=== PATIENT | male | born 1935 | race Caucasian/White ===

== ENCOUNTER 2018-09-19 10:25 | Inpatient (IN) ==
--- OUTSIDE RECORDS SUMMARY | 2018-09-19 10:27 | External Medical Summary | Continuity of Care Document ---
:1935 Author Name Holly Chavarria Address Unavailable Unavailable , Care Team Providers Name Role Phone Unavailable Unavailable Unavailable Ag MAR Unavailable Unavailable Problems Active medical history not documented Allergies and Adverse Reactions Allergy history not documented Medications Medications not documented Procedures Procedures not documented Immunizations Immunizations not documented Plan of Treatment Planned Observations Planned Goals not documented Results No Known Results Results not documented
[2018-09-19] MEDS ORDERED: SODIUM CHLORIDE 0.9% 500 ML IV ONE (10:59)
[2018-09-19] MEDS ORDERED: ACETAMINOPHEN 1,000 MG/100 ML VIAL IV STA (10:59)
[2018-09-19] MEDS ORDERED: DEXAMETHASONE SOD PHOSPHATE 10 MG in SYRINGE 0 ML IV STA (10:59)
[2018-09-19] MEDS ORDERED: TRAMADOL HCL 50 MG TABLET PO STA (11:01)
[2018-09-19] MEDS ORDERED: DEXAMETHASONE **PF** INJ 10 MG/ML VIAL ONE (11:29)
[2018-09-19 11:30] LABS: Basophils # (auto) 0.02 K/uL (0-0.2); Basophils % (auto) 0.3 %; Eosinophils # (auto) 0.06 K/uL (0-0.5); Eosinophils % (auto) 0.8 %; Hematocrit (blood only) 36.1 % (42-52); Hemoglobin 12.2 g/dL (14.0-18.0); Immature Granulocytes # (auto) 0.14 K/uL (0.00-0.02); Immature Granulocytes % (auto) 1.8 %; Lymphocytes # (auto) 0.99 K/uL (1.2-3.4); Mean Corpuscular Hgb Conc 33.8 g/dL (32-36); Mean Corpuscular Volume 87.6 fL (80-100); Mean Platelet Volume 9.5 fL (7.4-10.4); Monocytes # (auto) 0.64 K/uL (0.11-0.59); Monocytes % (auto) 8.4 %; Neutrophils # (auto) 5.76 K/uL (1.4-6.5); Neutrophils % (auto) 75.7 %; Platelet Count 145 K/uL (130-400); RDW Coefficient of Variation 13.9 % (11.5-14.5); RDW Standard Deviation 44.5 fL (36.4-46.3); Red Blood Count 4.12 M/uL (4.7-6.1); White Blood Count 7.61 K/uL (4.8-10.8)
[2018-09-19 11:41] LABS: Albumin Level 3.3 gm/dl (3.4-5.0); BUN Creatinine Ratio 19.8 (10-20); Calcium 10.5 mg/dl (8.5-10.1); Creatinine Clr Calc Pharmacy 51.9 ml/min; Est GFR (Non-African American) 56.9; Potassium 3.5 mmol/L (3.5-5.1)
[2018-09-19 11:46] LABS: Albumin Globulin Ratio 0.8 (0.9-2); Bilirubin Direct 0.2 mg/dl (0-0.2); Bilirubin,Total 0.6 mg/dl (0.2-1); Globulin 4.1 gm/dl (2.5-4.0); Phosphorus 3.2 mg/dl (2.5-4.9); Total Protein 7.4 gm/dl (6.4-8.2)
[2018-09-19] MEDS ORDERED: IOVERSOL 100ml IV PRN (12:05)
[2018-09-19 12:06] LABS: Lyme Ab IgM w/WB Rflx Negative (Negative)
[2018-09-19 12:07] LABS: Lyme Ab IgG w/WB Rflx Negative (Negative)
--- NOTE | 2018-09-19 12:21 | CT Scan Report ---
CT abd pelvis IV con only CLINICAL HISTORY: lower back pain, ostomy COMPARISON STUDY: June 25, 2015 TECHNIQUE: Patient was scanned in a dynamic helical fashion during intravenous administration of 94 c c Optiray 320. A dose lowering technique was utilized adhering to the principles of ALARA. CT DOSE: 1284.47 mGy.cm FINDINGS: Lower chest: There are dependent atelectatic changes. There is aneurysmal dilatation of the descendin g thoracic aorta which measures 39 mm. There is mural thrombus present. Liver: The contrast-enhanced liver is normal in size, contour, and attenuation. There is no intrahepa tic biliary ductal dilatation. The hepatic veins and portal veins are patent. Gallbladder: Cholelithiasis Spleen: Normal in size and attenuation. Pancreas: Unremarkable. Adrenal glands: Unremarkable. Kidneys: There is a 3 mm nonobstructing right renal calculus. There is no hydronephrosis. There are m ultiple bilateral renal cysts measuring up to 4.8 cm in diameter. Bowel: There are no transition zones to indicate bowel obstruction. There is a right lower quadrant i leostomy. The patient appears be status post a prior colectomy. Peritoneum: There is no intraperitoneal free air or abdominal ascites. Vasculature: There is a 4.8 cm infrarenal abdominal aortic aneurysm status post aortoiliac stent debbie ting. Adenopathy: There are enlarged bilateral low pelvic lymph nodes. Pelvic viscera: There is a 10 cm lobulated pelvic mass contiguous with the prostate and bladder base. There are adjacent pathologically enlarged pelvic lymph nodes. The findings are consistent with a ne oplasm. Skeletal structures: There are lytic bone lesions involving the ischial bilaterally and left symphysi s. There are lytic lesions within the sacrum, including a 5 cm left-sided lesion with epidural extens ion. There are lytic lesions present within the lumbar and lower thoracic spine. A 14 mm T10 lesion d emonstrates epidural extension on the left. A T11 lesion also demonstrates suspected epidural extensi on IMPRESSION: 1. 10 cm lobulated pelvic mass contiguous with the prostate and bladder base. There are adjacent path ologically enlarged pelvic lymph nodes. 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 Spinal MRI might be considered in follow-up to further evaluate the exte nt of epidural disease and canal compromise 3. Postsurgical changes are prior colectomy. No evidence of bowel obstruction. No evidence of free ai r 4. Abdominal aortic aneurysm status post aortoiliac stent grafting. 5. Nonobstructing 3 mm right renal calculus 6. Cholelithiasis Electronically signed by: Hiue Mims M.D. 09/19/2018 12:20 PM
[2018-09-19 13:12] LABS: Appearance Urine Clear (Clear); Bilirubin Urine Negative (Negative); Blood Urine Negative (Negative); Color Urine Yellow; Glucose Urine UA Negative (Negative); Ketones Urine Negative (Negative); Leukocyte Esterase Urine Negative (Negative); Nitrite Urine Negative (Negative); Protein Urine Negative (Negative); Specific Gravity Urine 1.035 (1.000-1.030); Urobilinogen Urine Negative (Negative); pH Urine 5.5 (4.5-7.5)
[2018-09-19] MEDS ORDERED: MoRPHine SULFATE 2 MG/ML CARP IV STA (13:12)
--- NOTE | 2018-09-19 14:32 | History & Physical Report ---
Date of Service September 19, 2018 Assessment & Plan (1) Pelvic mass: Pt presented to ER with c/o thoracic and low back pain with radiation to bilateral buttocks that has increased over past several months. Reports decreased urinary stream and incomplete bladder emptying. CT ABD/PELVIS WITH CONTRAST: 1. 10 cm lobulated pelvic mass contiguous with the prostate and bladder base. There are adjacent pathologically enlarged pelvic lymph nodes. 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 Spinal MRI might be considered in follow-up to further evaluate the extent of epidural disease and canal compromise 3. Postsurgical changes are prior colectomy. No evidence of bowel obstruction. No evidence of free air 4. Abdominal aortic aneurysm status post aortoiliac stent grafting. 5. Nonobstructing 3 mm right renal calculus 6. Cholelithiasis -In ER given Tylenol IV, Tramdol with reported minimal relief. Received Morphine 2mg IV with moderate back pain relief. Also given dexamethasone 10mg IV, 500ml NSS -Pain control with oxycodone, morphine prn -Bladder scan -Continue gabapentin -Urology consult -Consider further imaging (pt received IV contrast today) -Monitor CBC, BMP (2) HTN (hypertension): Stable -Continue atenolol (3) CAD (coronary artery disease): S/P stent RCA in 1999 -Continue atenolol, simvastatin (4) AAA (abdominal aortic aneurysm): S/P repair in 2008 (5) BPH (benign prostatic hyperplasia): -Continue finasteride History of Present Illness Chief Complaint: Back pain Primary Care Provider: Patrick Calero DO Pt is 83 y/o M with PMH HTN, dyslipidemia, CAD s/p stent RCA, AAA s/p repair, ulcerative colitis s/p colectomy, BPH presented to ER with c/o increased back pain. Patient reports history of lower back pain for several years. Reports increased back pain for the past 8 months with pain to lower back with radiation to buttocks in past 3 months is also been having mid back pain. Patient states the past several months pain is increased and he is having difficulty lying supine in finding position of comfort. Has followed up with pain management at [facility] and injections were tried without relief. Pt followed with neurosurgery at [facility] on 09/17/18 and conservative treatment recommended. Pt reports tried hydrocodone which he reserved for severe pain and used with limited relief of pain, states has one dose remaining. On Gabapentin, states some relief, however pt reports drowsiness and states ran out yesterday. Patient denies any lower extremity weakness. Denies any falls. Patient reports is been using a walker. Patient reports noticed weight loss over the past couple months however is unsure the amount. Reports decreased appetite the past month. Denies night sweats. Pt reports progressive decreased urine stream and sensation of incomplete bladder emptying over past couple of months. Denies any increased stool out put in colostomy bag. Denies fever/chills, N/V, [place], dizziness, syncope, vision changes, neck pain, CP, SOB, orthopnea, palpitations, cough, sore throat, choking, otalgia, rhinorrhea, abdominal pain, extremity paresthesias, saddle paresthesias, extremity edema, rashes, urinary incontinence, hematuria. History MRI lumbar spine without contrast 04/01/2018: 1. Mild to moderate multilevel degenerative disc disease. 2. No definite limiting canal stenosis. 3. Varying degrees of foraminal narrowing as described not definitively limiting. 4. On the STIR images, there is a STIR hyperintensity appears to be associated with the right ilium. This is not well demonstrated on their series, appears T1 hypointense and is nonspecific, may be posttraumatic. Metastatic lesion not excluded. Follow-up with CT scan or MRI with contrast recommended. Hx CT ABD/PELVIS W/O CONTRAST on 05/01/18: Bones: No focal skeletal lesion identified. Bladder: unremarkable, Lymph nodes: unremarkable. Enlarged prostate gland. Vessels: Aorto bi-iliac graft stent noted, the stent bypasses a fusiform abdominal aneurysm near the bifurcation that measures up to approx 4.9cm in diameter. this is unchanged in size compared to aortic ultrasound 09/18/2017. Allergies Allergy/AdvReac Type Severity Reaction Status Date / Time No Known Allergies Allergy Unverified 09/19/18 10:47 Home Medications Home Medications Medication Instructions Recorded Confirmed Type atenolol 25 mg PO HS 09/19/18 09/19/18 History bimatoprost [Lumigan] 1 drp OPB PM 09/19/18 09/19/18 History brimonidine-timolol [Combigan] 1 drp OPB BID 09/19/18 09/19/18 History fexofenadine [Silvia Allergy] 180 mg PO DAILY PRN 09/19/18 09/19/18 History finasteride 5 mg PO DAILY 09/19/18 09/19/18 History gabapentin 600 mg PO TID 09/19/18 09/19/18 History hydrocodone-acetaminophen 1 tab PO Q6H PRN 09/19/18 09/19/18 History ibuprofen 400 mg PO QID PRN 09/19/18 09/19/18 History netarsudil [Rhopressa] 1 drp OPB QAM 09/19/18 09/19/18 History simvastatin 80 mg PO HS 09/19/18 09/19/18 History tamsulosin 0.4 mg PO DAILY 09/19/18 09/19/18 History Past Med/Surg History Medical History Ulcerative colitis (Chronic) AAA (abdominal aortic aneurysm) (Chronic) S/P [place]13/[place] [facility] BPH (benign prostatic hyperplasia) (Chronic) CAD (coronary artery disease) (Chronic) Dyslipidemia (Chronic) HTN (hypertension) (Chronic) Surgical History Hx of cataract surgery (Chronic) Hx of tonsillectomy (Chronic) History of colostomy (Chronic) History of cardiac catheterization (Chronic) S/P stent RCA in 1999 Family History Other Diabetes Hypertension Social History Communication Ability: Effective Beliefs That Will Affect Care: None Current Living Situation: Family Feels Safe at Home: Yes Safety Concerns: Feels Safe At This Time Smoking Status: Former smoker Smoking End Date: Quit 1989, smoked 1.5ppd x 30 years Hx Alcohol Use: No Hx Substance Use: No Review of Systems Review of Systems: All systems reviewed & are unremarkable except as noted in HPI & below Physical Exam Physical Exam: General: no acute distress after receiving pain meds in ER, WDWN Head: normocephalic, atraumatic Eyes: PERRL, EOM's intact, conjunctiva non-injected, anicteric ENT: Hard of hearing, normal inspection external ears, nose, mucous membranes moist Neck: supple, trachea midline, non-tender Lungs: clear, no respiratory distress, no wheezing/rhonchi/rales CV: RRR, systolic murmur, no pretibial edema Chest: no rashes, +palpable firm mass right and left lateral sternum rib at approx nipple line that is tender to palpation Abd: normal BS, soft, non-tender Back: +mild tenderness to palpation mid and lower thoracic and lower lumbar spinous processes, able to straight leg raise to approx 30 degrees bilaterally, patellar reflexes intact, sensation to light touch BLE intact, distal pulses palpable Ext: no cyanosis, no calf tenderness Neuro: A&O x 3, no focal deficits noted, normal affect Skin: warm, dry Results & Data Vital Signs (Past 12 Hours) Vital Signs Temp Pulse Pulse Resp BP BP Pulse Ox 09/19/18 13:10 87 20 140/87 94 09/19/18 11:37 87 20 159/79 H 92 09/19/18 11:22 92 09/19/18 10:31 37 C 77 20 141/76 H 95 Laboratory Results Short CBC 09/19/18 Range/Units 11:17 WBC 7.61 (4.8-10.8) K/uL Hgb 12.2 L (14.0-18.0) g/dL Hct 36.1 L (42-52) % Plt Count 145 (130-400) K/uL BMP 09/19/18 11:17 Sodium 138 Potassium 3.5 Chloride 101 Carbon Dioxide 30 BUN 24 H Creatinine 1.19 Glucose 106 H Calcium 10.5 H Cardiac Enzymes 09/19/18 Range/Units 11:17 Total Creatine Kinase 81 (39-308) U/L Liver Function 09/19/18 Range/Units 11:17 Total Bilirubin 0.6 (0.2-1) mg/dl Direct Bilirubin 0.2 (0-0.2) mg/dl AST 33 (15-37) U/L ALT 17 (12-78) U/L Alkaline Phosphatase 85 (45-117) U/L Albumin 3.3 L (3.4-5.0) gm/dl Urine 09/19/18 Range/Units 13:05 Urine Color Yellow Urine Appearance Clear (Clear) Urine pH 5.5 (4.5-7.5) Ur Specific [place] 1.035 H (1.000-1.030) Urine Protein Negative (Negative) Urine Glucose (UA) Negative (Negative) Diagnostic Findings CT ABD/PELVIS WITH CONTRAST: IMPRESSION: 1. 10 cm lobulated pelvic mass contiguous with the prostate and bladder base. There are adjacent pathologically enlarged pelvic lymph nodes. 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 Spinal MRI might be considered in follow-up to further evaluate the extent of epidural disease and canal compromise 3. Postsurgical changes are prior colectomy. No evidence of bowel obstruction. No evidence of free air 4. Abdominal aortic aneurysm status post aortoiliac stent grafting. 5. Nonobstructing 3 mm right renal calculus 6. Cholelithiasis Supervising Physician Co-Signing Physician Notes Attending Addendum: care coordinated with ARMANDO Cottrell please refer to her notes for full details, I agree with her notes patient seen and examined, records reviewed by myself as well on exam, patient seen resting in bed, comfortable, not in distress Back pain fully relieved by PRN morphine Denies problems with urination no other symptoms VS noted and reviewed oriented x3, not in distress, speaks in sentences with no effort nor accessory muscle use normal rate, regular rhythm, no murmurs clear breath sounds bilaterally non distended, soft, nontender no bipedal edema, erythema, warmth no neuro deficits WBC 7.6 Hg 12[address] abdomen pelvis: Noted ASSESSMENT AND PLAN Back pain, 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
[2018-09-19] MEDS ORDERED: SODIUM CHLORIDE 0.9% 1000ML 1,000 ML IV SCH (15:36)
[2018-09-19] MEDS ORDERED: ACETAMINOPHEN 325 MG TAB PO PRN (15:36)
[2018-09-19] MEDS ORDERED: MoRPHine SULFATE 2 MG/ML CARP IV PRN (15:36)
--- NOTE | 2018-09-19 15:51 | Emergency Department Note ---
Entered by Emi Day acting as a scribe for Kvng Arango MD History of Present Illness General Chief complaint: Back Injury/Pain Time Seen by Provider: 09/19/18 10:31 Source: patient History of Present Illness Provider complaint: back pain Onset (ago): week(s) (Couple of weeks) Location: back Radiation: back (From center to lower back) Maximum Pain Intensity: 7 Quality: + other (back pain) Relieved By: not by medication Associated symptoms: + other (Positive diffulty urinarting) The patient is a 83 year old male who presents to the Emergency Room with complaints of constant back pain that started a couple of weeks ago. The patient states that he recently had an MRI of his back but pain is getting worse. The patient expresses that he can not lay down, sit or stand without discomfort. The patient states that he has been prescribed medication but it has not given him pain relief. The patient expresses that the pain is unbearable. The patient reports that the pain is in the center of his spine and radiates down to his lower back. The patient expresses that it feels like his coccyx is pressing on something and giving him pain. The patient reports that 25 years ago he had a pilonidol cyst. The patient denies any recent falls and can only walk with a walker. The patient states that he has an enlarged prostate and expresses increasing trouble to urinate. The patient expresses that he had suicidal ideation with no intention to act on it. The patient reports that he lives with is son. The patient had an MRI from [facility] 04/01/2018 that showed mild to moderate multilevel degenerative disk disease with no canal stenosis. The patient had a CT of his pelvis on 05/01/18 no focal skeletal lesion. The patient saw pain management on 09/11/18 and had recent inter-articular facet injection but pain was not improved. Home Medications Home Medications Medication Instructions Recorded Confirmed Type atenolol 25 mg PO HS 09/19/18 09/19/18 History bimatoprost [Lumigan] 1 drp OPB PM 09/19/18 09/19/18 History brimonidine-timolol [Combigan] 1 drp OPB BID 09/19/18 09/19/18 History fexofenadine [Silvia Allergy] 180 mg PO DAILY PRN 09/19/18 09/19/18 History finasteride 5 mg PO DAILY 09/19/18 09/19/18 History gabapentin 600 mg PO TID 09/19/18 09/19/18 History hydrocodone-acetaminophen 1 tab PO Q6H PRN 09/19/18 09/19/18 History ibuprofen 400 mg PO QID PRN 09/19/18 09/19/18 History netarsudil [Rhopressa] 1 drp OPB QAM 09/19/18 09/19/18 History simvastatin 80 mg PO HS 09/19/18 09/19/18 History tamsulosin 0.4 mg PO DAILY 09/19/18 09/19/18 History Allergies Allergy/AdvReac Type Severity Reaction Status Date / Time No Known Allergies Allergy Unverified 09/19/18 10:47 Past Med/Surg History Medical History Ulcerative colitis (Chronic) AAA (abdominal aortic aneurysm) (Chronic) [place] [facility] [place] [place]PH (benign prostatic hyperplasia) (Chronic) CAD (coronary artery disease) (Chronic) Dyslipidemia (Chronic) HTN (hypertension) (Chronic) Surgical History Hx of cataract surgery (Chronic) Hx of tonsillectomy (Chronic) History of colostomy (Chronic) History of cardiac catheterization (Chronic) S/P stent RCA in 1999 Family History Other Diabetes Hypertension Social History Communication Ability: Effective Beliefs That Will Affect Care: None Current Living Situation: Family Feels Safe at Home: Yes Safety Concerns: Feels Safe At This Time Smoking Status: Former smoker Smoking End Date: Quit 1989, smoked 1.5ppd x 30 years Hx Alcohol Use: No Hx Substance Use: No Review of Systems See HPI for pertinent positives & negatives. and A total of 10 systems reviewed and were otherwise negative Physical Exam Vital Signs Vital Signs - 24 hr 09/19/18 10:31 09/19/18 11:22 09/19/18 11:37 Temperature 37 C Temperature Source Oral Sepsis Recent Fever Within 48 Hours No Sepsis New/Unexplained Change in Mental Status No Sepsis Action Taken by Nursing No Action Required Pulse Rate 77 Pulse Rate [Apical] 87 Respiratory Rate 20 20 Blood Pressure 141/76 H Blood Pressure [Right Arm] 159/79 H Blood Pressure Mean 97 Blood Pressure Mean [Right Arm] 105 Pulse Oximetry 95 92 92 Oxygen Delivery Method Room Air Room Air Room Air 09/19/18 13:10 Temperature Temperature Source Sepsis Recent Fever Within 48 Hours Sepsis New/Unexplained Change in Mental Status Sepsis Action Taken by Nursing Pulse Rate Pulse Rate [Apical] 87 Respiratory Rate 20 Blood Pressure Blood Pressure [Right Arm] 140/87 Blood Pressure Mean Blood Pressure Mean [Right Arm] 104 Pulse Oximetry 94 Oxygen Delivery Method Room Air GENERAL: Awake, alert, melancholy-appearing, and uncomfortable HENT: Normocephalic, atraumatic. Oropharynx with dry mucous membranes and otherw ise unremarkable. EYES: Normal conjunctiva. Sclera non-icteric. NECK: Supple. No nuchal rigidity. FROM. No JVD. RESPIRATORY: CTAB. CARDIAC: Regular rate, normal rhythm. Extremities warm and well perfused. Pulses equal. ABDOMEN: Soft, non-distended. No tenderness to palpation. No rebound or guarding. No masses. Ostomy clean and dry. RECTAL: Deferred. MUSCULOSKELETAL: Chest examination 2cm protuberance left of sternum with mild ttp. The back is symmetrical on inspection without obvious abnormality. No discrete ttp of CTL spine. There is no CVA tenderness to palpation. No joint edema. LOWER EXTREMITIES: Calves are equal size bilaterally and non-tender. No edema. No discoloration. NEURO: Normal sensorium. No sensory or motor deficits noted. 5/5 strength and SILT x 4 extremities. DTRs wnl.. No clonus. L5 intact bilaterally. SKIN: No rash or jaundice noted. Course 1049: Past medical records reviewed. The patient was evaluated in room B10. A complete history and physical exam was performed. 1230: I reviewed the patient's case with Dr. Paige Martin. She will evaluate the patient for further management. Consultations Consultation #1: I reviewed the patient's case with Dr. Paige Martin. She will evaluate the patient for further management. Time: 12:30 Administered Medications Sodium Chloride (Nss 1000ml) 1,000 mls @ 80 mls/hr IV .[id number] REGAN Stop: 09/20/18 04:05 Last Admin: 09/19/18 15:51 Dose: 80 mls/hr Documented by: [id number] Miscellaneous (Order Awaiting Action) 1 ea N/A QS REGAN Stop: 10/19/18 16:29 Last Admin: 09/19/18 17:15 Dose: Not Given Documented by: [id number] Miscellaneous (Order Awaiting Action) 1 ea N/A QS REGAN Stop: 10/19/18 15:59 Last Admin: 09/19/18 17:15 Dose: Not Given Documented by: [id number] Oxycodone HCl (Roxicodone Immediate Rel) 5 mg PO Q6H PRN PRN Reason: Pain Stop: 10/03/18 15:35 Last Admin: 09/19/18 17:09 Dose: 5 mg Documented by: [id number] Discontinued Medications Dexamethasone Sodium Phosphate (Decadron Pf) Confirm Administered Dose 10 mg .ROUTE .STK-MED ONE Stop: 09/19/18 11:30 Last Admin: 09/19/18 11:31 Dose: 10 mg Documented by: [id number] Acetaminophen (Ofirmev) 1,000 mg in 100 mls @ 400 mls/hr IV NOW STA Stop: 09/19/18 11:13 Last Infusion: 09/19/18 11:46 Dose: 0 mls/hr Documented by: [id number] Admin: 09/19/18 11:31 Dose: 400 mls/hr Documented by: [id number] Dexamethasone Sodium Phosphate (10 mg/ Syringe) 2.5 mls @ 1 mls/min IV NOW STA Stop: 09/19/18 11:01 Last Admin: 09/19/18 11:31 Dose: Not Given Documented by: [id number] Sodium Chloride (Nss) 500 mls @ 999 mls/hr IV .Q31M ONE Stop: 09/19/18 11:29 Last Infusion: 09/19/18 12:02 Dose: 0 mls/hr Documented by: [id number] Admin: 09/19/18 11:31 Dose: 999 mls/hr Documented by: [id number] Ioversol (Optiray 320 100ml) 94 ml IV ONCE PRN PRN Reason: Interaction Checking Stop: 09/23/18 12:04 Last Admin: 09/19/18 12:05 Dose: 94 ml Documented by: [id number] Morphine Sulfate (Morphine Sulfate) 2 mg IV NOW STA Stop: 09/19/18 13:13 Last Admin: 09/19/18 13:20 Dose: 2 mg Documented by: [id number] Tramadol HCl (Ultram) 50 mg PO NOW STA Stop: 09/19/18 11:02 Last Admin: 09/19/18 11:30 Dose: 50 mg Documented by: [id number] Medical Decision Making Differential Diagnosis Differential diagnosis includes: musculoskeletal, disc herniation, fracture, aortic disease, metastatic disease, cord compression, discitis, infection, renal colic, gastrointestinal, acute exacerbation of chronic back pain, sciatica, cauda equina, as well as others were entertained. Medical Records Attestation: I reviewed the patient's medical records. Home Medications Current Medication List: was personally reviewed by me Laboratory Data Attestation: I reviewed the patient's lab results. Result diagrams: 09/19/18 11:17 09/19/18 11:17 Lab Results 09/19/18 09/19/18 09/19/18 Range/Units 11:17 11:17 11:17 WBC 7.61 (4.8-10.8) K/uL RBC 4.12 L (4.7-6.1) M/uL Hgb 12.2 L (14.0-18.0) g/dL Hct 36.1 L (42-52) % MCV 87.6 (80-100) fL MCH 29.6 (25-34) pg MCHC 33.8 (32-36) g/dL RDW Std Deviation 44.5 (36.4-46.3) fL RDW Coeff of Deven 13.9 (11.5-14.5) % Plt Count 145 (130-400) K/uL MPV 9.5 (7.4-10.4) fL Immature Gran % (Auto) 1.8 % Neut % (Auto) 75.7 % Lymph % (Auto) 13.0 % [place] % (Auto) 8.4 % Eos % (Auto) 0.8 % Baso % (Auto) 0.3 % Immature Gran # (Auto) 0.14 H (0.00-0.02) K/uL Neut # (Auto) 5.76 (1.4-6.5) K/uL Lymph # (Auto) 0.99 L (1.2-3.4) K/uL [place] # (Auto) 0.64 H (0.11-0.59) K/uL Eos # (Auto) 0.06 (0-0.5) K/uL Baso # (Auto) 0.02 (0-0.2) K/uL Sodium 138 (136-145) mmol/L Potassium 3.5 (3.5-5.1) mmol/L Chloride 101 (98-107) mmol/L Carbon Dioxide 30 (21-32) mmol/L Anion Gap 7.0 (3-11) BUN 24 H (7-18) mg/dl Creatinine 1.19 (0.6-1.4) mg/dl Est Cr Clr Drug Dosing 51.9 ml/min Est GFR ( Amer) 66.0 Est GFR (Non-Af Amer) 56.9 BUN/Creatinine Ratio 19.8 (10-20) Glucose 106 H (70-99) mg/dl Calcium 10.5 H (8.5-10.1) mg/dl Phosphorus 3.2 (2.5-4.9) mg/dl Magnesium 2.0 (1.8-2.4) mg/dl Total Bilirubin 0.6 (0.2-1) mg/dl Direct Bilirubin 0.2 (0-0.2) mg/dl AST 33 (15-37) U/L ALT 17 (12-78) U/L Alkaline Phosphatase 85 (45-117) U/L Total Creatine Kinase 81 (39-308) U/L Total Protein 7.4 (6.4-8.2) gm/dl Albumin 3.3 L (3.4-5.0) gm/dl Globulin 4.1 H (2.5-4.0) gm/dl Albumin/Globulin Ratio 0.8 L (0.9-2) Lipase 113 (73-393) U/L Urine Color Urine Appearance (Clear) Urine pH (4.5-7.5) Ur Specific [place] (1.000-1.030) Urine Protein (Negative) Urine Glucose (UA) (Negative) Urine Ketones (Negative) Urine Blood (Negative) Urine Nitrite (Negative) Urine Bilirubin (Negative) Urine Urobilinogen (Negative) Ur Leukocyte Esterase (Negative) Lyme Disease IgG Ab Negative (Negative) Lyme Disease IgM Ab Negative (Negative) 09/19/18 Range/Units 13:05 WBC (4.8-10.8) K/uL RBC (4.7-6.1) M/uL Hgb (14.0-18.0) g/dL Hct (42-52) % MCV (80-100) fL MCH (25-34) pg MCHC (32-36) g/dL RDW Std Deviation (36.4-46.3) fL RDW Coeff of Deven (11.5-14.5) % Plt Count (130-400) K/uL MPV (7.4-10.4) fL Immature Gran % (Auto) % Neut % (Auto) % Lymph % (Auto) % [place] % (Auto) % Eos % (Auto) % Baso % (Auto) % Immature Gran # (Auto) (0.00-0.02) K/uL Neut # (Auto) (1.4-6.5) K/uL Lymph # (Auto) (1.2-3.4) K/uL [place] # (Auto) (0.11-0.59) K/uL Eos # (Auto) (0-0.5) K/uL Baso # (Auto) (0-0.2) K/uL Sodium (136-145) mmol/L Potassium (3.5-5.1) mmol/L Chloride (98-107) mmol/L Carbon Dioxide (21-32) mmol/L Anion Gap (3-11) BUN (7-18) mg/dl Creatinine (0.6-1.4) mg/dl Est Cr Clr Drug Dosing ml/min Est GFR ( Amer) Est GFR (Non-Af Amer) BUN/Creatinine Ratio (10-20) Glucose (70-99) mg/dl Calcium (8.5-10.1) mg/dl Phosphorus (2.5-4.9) mg/dl Magnesium (1.8-2.4) mg/dl Total Bilirubin (0.2-1) mg/dl Direct Bilirubin (0-0.2) mg/dl AST (15-37) U/L ALT (12-78) U/L Alkaline Phosphatase (45-117) U/L Total Creatine Kinase (39-308) U/L Total Protein (6.4-8.2) gm/dl Albumin (3.4-5.0) gm/dl Globulin (2.5-4.0) gm/dl Albumin/Globulin Ratio (0.9-2) Lipase (73-393) U/L Urine Color Yellow Urine Appearance Clear (Clear) Urine pH 5.5 (4.5-7.5) Ur Specific [place] 1.035 H (1.000-1.030) Urine Protein Negative (Negative) Urine Glucose (UA) Negative (Negative) Urine Ketones Negative (Negative) Urine Blood Negative (Negative) Urine Nitrite Negative (Negative) Urine Bilirubin Negative (Negative) Urine Urobilinogen Negative (Negative) Ur Leukocyte Esterase Negative (Negative) Lyme Disease IgG Ab (Negative) Lyme Disease IgM Ab (Negative) Imaging Data Radiologist's Impression: Radiology results as stated below per my review and the radiologist's interpretation: CT abd pelvis IV con only CLINICAL HISTORY: lower back pain, ostomy COMPARISON STUDY: June 25, 2015 TECHNIQUE: Patient was scanned in a dynamic helical fashion during intravenous administration of 94 cc Optiray 320. A dose lowering technique was utilized adhering to the principles of ALARA. CT DOSE: 1284.47 mGy.cm FINDINGS: Lower chest: There are dependent atelectatic changes. 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 There is mural thrombus present. Liver: The contrast-enhanced liver is normal in size, contour, and attenuation. There is no intrahepatic biliary ductal dilatation. The hepatic veins and portal veins are patent. Gallbladder: Cholelithiasis Spleen: Normal in size and attenuation. Pancreas: Unremarkable. Adrenal glands: Unremarkable. Kidneys: There is a 3 mm nonobstructing right renal calculus. There is no hydronephrosis. There are multiple bilateral renal cysts measuring up to 4.8 cm in diameter. Bowel: There are no transition zones to indicate bowel obstruction. There is a right lower quadrant ileostomy. The patient appears be status post a prior colectomy. Peritoneum: There is no intraperitoneal free air or abdominal ascites. Vasculature: There is a 4.8 cm infrarenal abdominal aortic aneurysm status post aortoiliac stent grafting. Adenopathy: There are enlarged bilateral low pelvic lymph nodes. Pelvic viscera: There is a 10 cm lobulated pelvic mass contiguous with the prostate and bladder base. There are adjacent pathologically enlarged pelvic lymph nodes. The findings are consistent with a neoplasm. Skeletal structures: There are lytic bone lesions involving the ischial bilaterally and left symphysis. There are lytic lesions within the sacrum, including a 5 cm left-sided lesion with epidural extension. There are lytic lesi ons present within the lumbar and lower thoracic spine. A 14 mm T10 lesion demonstrates epidural extension on the left. A T11 lesion also demonstrates suspected epidural extension IMPRESSION: 1. 10 cm lobulated pelvic mass contiguous with the prostate and bladder base. There are adjacent pathologically enlarged pelvic lymph nodes. 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 Spinal MRI might be considered in follow-up to further evaluate the extent of epidural disease and canal compromise 3. Postsurgical changes are prior colectomy. No evidence of bowel obstruction. No evidence of free air 4. Abdominal aortic aneurysm status post aortoiliac stent grafting. 5. Nonobstructing 3 mm right renal calculus 6. Cholelithiasis Electronically signed by: Hieu Mims M.D. 09/19/2018 12:20 PM ECG Data Attestation: I personally reviewed and interpreted this ECG as follows: Indication: back/shoulder pain Rate (beats per minute): 73 Rhythm: normal sinus and sinus rhythm Findings: + other (normal sinus) and + PAC; no acute ischemic change Blood Pressure Blood Pressure Findings: Normal blood pressure MDM Narrative The patient is a pleasant 83-year-old gentleman with a past medical history of CAD, AAA repair who presents emergency department with worsening lower back pain in setting of being followed outpatient over the past 6 months for similar pain but reports a worsening over the past week per hpi. Of note, the patient did have an MRI without contrast in March which did not demonstrate any acute emergent process and demonstrated only degenerative disease. He had a CT without contrast in April that also did not show any overt acute process. On arrival patient is uncomfortable but no acute distress, afebrile stable vital signs. He has 5/5 strength and SILT in bilateral lower extremities. L5 intact bilaterally. CT abdomen pelvis performed given the patient's persistent and worsening pain and demonstrates a 10 cm pelvic mass that is contiguous with the patient's prostate and bladder. There is additional evidence of metastatic di sease with bony lesions and lymphadenopathy. Given the patient's refractory pain in the setting of likely newly diagnosed metastatic disease reasonable to admit the patient for further management. Case was discussed with Charley Posada, [facility], who evaluate the patient for admission. Per patient's request, I did review the findings with the patient's son over the phone, who the patient lives with. Impression & Plan Pelvic mass, Metastatic disease Discharge Plan Visit Data *Final* Discharge Date/Time: 09/19/18 14:38 Chief Complaint: Back Injury/Pain ED Provider: Kvng Arango Discharge Problem: Pelvic mass, Metastatic disease Patient Disposition: Admitted As Inpatient Discharge Instructions Interventions: ED Discharge Assessment Last Done: 09/19/18 14:38 The scribe's documentation has been prepared under my direction and personally reviewed by me in its entirety. I confirm that the note above accurately reflects all work, treatment, procedures, and medical decision making performed by me.
[2018-09-19] MEDS: OXYCODONE HCL IR 5 MG TAB (IMMEDIATE RELEASE) PO PRN (17:09)
[2018-09-19] MEDS: COMBIGAN~ORDER AWAITING ACTION SCH ×2 (17:15→23:03)
[2018-09-19 17:23] LABS: INR 1.1 (0.9-1.1); Partial Thromboplastin Ratio 0.9; Partial Thromboplastin Time 24.5 Seconds (21.0-31.0); Prothrombin Time 11.6 Seconds (9.0-12.0)
[2018-09-19] MEDS: MoRPHine SULFATE 2 MG/ML CARP IV PRN (21:04)
[2018-09-19] MEDS: SIMVASTATIN 80 MG TAB PO SCH (21:04)
[2018-09-19] MEDS: ATENOLOL 25 MG TABLET PO SCH (21:05)
[2018-09-19] MEDS: HEPARIN SOD 5,000 UNIT/0.5 ML VIAL SQ SCH (21:05)
[2018-09-19] MEDS: GABAPENTIN 600 MG TAB PO SCH (21:06)
[2018-09-19] MEDS: BIMATOPROST 0.01% OP SOLN 2.5 ML BTL OPB SCH (21:06)
[2018-09-20] MEDS: MoRPHine SULFATE 2 MG/ML CARP IV PRN ×2 (04:33→12:48)
[2018-09-20] MEDS: HEPARIN SOD 5,000 UNIT/0.5 ML VIAL SQ SCH ×3 (06:19→22:11)
[2018-09-20 06:25] LABS: Hematocrit (blood only) 32.4 % (42-52); Hemoglobin 11.2 g/dL (14.0-18.0); Mean Corpuscular Hgb Conc 34.6 g/dL (32-36); Mean Corpuscular Volume 87.6 fL (80-100); Mean Platelet Volume 9.4 fL (7.4-10.4); Platelet Count 131 K/uL (130-400); White Blood Count 8.37 K/uL (4.8-10.8)
[2018-09-20 07:05] LABS: BUN Creatinine Ratio 29.8 (10-20); Calcium 9.7 mg/dl (8.5-10.1); Creatinine Clr Calc Pharmacy 67.8 ml/min; Est GFR (African American) 91.3; Est GFR (Non-African American) 78.8; Potassium 4.1 mmol/L (3.5-5.1)
--- NOTE | 2018-09-20 07:54 | Urology Consultation ---
Date of Consultation September 20, 2018 Assessment & Plan (1) Metastatic disease: 83yo M with PMHx HTN, dyslipidemia, CAD s/p stent RCA, AAA s/p repair, ulcerative colitis s/p ileostomy admitted with severe low back pain. Found to have grossly abnormal CT findings consistent with aggressive, m etastatic prostate cancer. PSA 330 today which further supports this suspicion. Long discussion with Dr. Wolfe today at bedside to discuss these findings and coordinate plan moving forward. Dr. Wolfe has also called son, Rainer and given him an update. Dr. 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 We will initiate bicalutamide therapy, and attempt for firmagon authorization urgently. We will order NM bone scan to further classify disease. We will consult Rad/Onc for possible palliative radiation given patient's severe bone pain. Will initiate bladder scans qshift. Contact Urology if PVR >500cc; please do not attempt straight cath without contacting our service. Order placed. We will continue to follow closely with primary service. Thank you for the consu ltation. Supervising Physician Co-Signing Physician Notes I agree with the note as above. Firmagon to be started MAGDA ultimately could benefit from med onc eval - and possible chemo/abiraterone/enzalutamide , but this consult can happen as an outpt we will have rad onc weigh in for possible assistance with symptom relief History of Present Illness Reason for Consultation: pelvic mass Requesting Physician: Dr. Bernal Attending Physician: Jermaine Bernal MD History of Present Illness 83yo M with PMHx HTN, dyslipidemia, CAD s/p stent RCA, AAA s/p repair, ulcerative colitis s/p ileostomy, BPH presented to ER with c/o increased back pain for many years, worsening over the last 8 months. Following with pain management at [facility] with injections without relief. ED admission was prompted by severe backpain, preventing his ability to walk. Denies LE weakness/numbness/swelling. He also noted decreased urinary stream, sensation of incomplete emptying over a few months. CT imaging reveals grossly abnormal prostate with adjacent pathologyically enlarged pelvic lymph nodes. Extensive lytic bony metastasis; very concerning for aggressive prostate cancer. PSA 330 today. S/p ileostomy for UC, rectal stump removed. Pt alert and oriented, eating full breakfast this AM. Evaluated with Dr. Wolfe. No family members at bedside. Pt does acknowledge slight burning with urination, able to void into urinal. Backpain is still very bothersome but controlled presently with IV medication. Allergies Allergy/AdvReac Type Severity Reaction Status Date / Time No Known Allergies Allergy Unverified 09/19/18 10:47 Home Medications Home Medications Medication Instructions Recorded Confirmed Type atenolol 25 mg PO HS 09/19/18 09/19/18 History bimatoprost [Lumigan] 1 drp OPB PM 09/19/18 09/19/18 History brimonidine-timolol [Combigan] 1 drp OPB BID 09/19/18 09/19/18 History fexofenadine [Silvia Allergy] 180 mg PO DAILY PRN 09/19/18 09/19/18 History finasteride 5 mg PO DAILY 09/19/18 09/19/18 History gabapentin 600 mg PO TID 09/19/18 09/19/18 History hydrocodone-acetaminophen 1 tab PO Q6H PRN 09/19/18 09/19/18 History ibuprofen 400 mg PO QID PRN 09/19/18 09/19/18 History netarsudil [Rhopressa] 1 drp OPB QAM 09/19/18 09/19/18 History simvastatin 80 mg PO HS 09/19/18 09/19/18 History tamsulosin 0.4 mg PO DAILY 09/19/18 09/19/18 History Patient History Medical History Ulcerative colitis (Chronic) AAA (abdominal aortic aneurysm) (Chronic) S/P repair 05/13/2008 - [facility] [place] BPH (benign prostatic hyperplasia) (Chronic) CAD (coronary artery disease) (Chronic) Dyslipidemia (Chronic) HTN (hypertension) (Chronic) Surgical History Hx of cataract surgery (Chronic) Hx of tonsillectomy (Chronic) History of colostomy (Chronic) History of cardiac catheterization (Chronic) S/P stent RCA in 1999 Family History Other Diabetes Hypertension Social History (Reviewed 09/20/18 @ 09:58 by FRANDY [place] Communication Ability: Effective Beliefs That Will Affect Care: None Current Living Situation: Family Feels Safe at Home: Yes Safety Concerns: Feels Safe At This Time Smoking Status: Former smoker Smoking End Date: Quit 1989, smoked 1.5ppd x 30 years ; Hx Alcohol Use: No Hx Substance Use: No Review of Systems Review of Systems: Constitutional: Denies fever, chills, sweats, malaise Eyes: Denies problem reported ENMT: Denies dizziness Resp: Denies cough, Denies shortness of breath CV: Denies JVD GI: Denies nausea/vomiting : Denies suprapubic or flank pain, dysuria, urgency, frequency, hematuria MS: Denies swelling, stiffness Integ: Denies rash, erythema Neuro: Denies falls, weakness Psych: Denies behavior change Endo: Denies polyphagia, polydipsia Heme: Denies easy bleeding Physical Exam Constitutional: no acute distress and not ill appearing Eyes: no nystagmus ENMT: Ears: + hearing impairment Neck: trachea midline Respiratory: no respiratory distress and no cough Cardiovascular: Vessels: no JVD Chest (Breasts): Chest: normal inspection of chest Musculoskeletal: Head/Neck/Chest: normocephalic and head atraumatic Skin: no rashes, warm and dry Neurologic: awake; not confused and not obtunded Psychiatric: Orientation: alert and oriented x 3 Eye Contact: good eye contact Affect: no depressed affect Genitourinary: no CVA tenderness Lymphatic: no lymphadenopathy and no lymphedema Results & Data Vital Signs (Past 12 Hours) Vital Signs Temp Pulse Resp BP Pulse Ox 09/20/18 05:25 36.6 C 67 20 130/69 92 09/19/18 23:00 36.8 C 69 18 137/76 91 Laboratory Results Laboratory Results - last 48 hr 09/19/18 09/19/18 09/19/18 11:17 11:17 11:17 WBC 7.61 RBC 4.12 L Hgb 12.2 L Hct 36.1 L MCV 87.6 MCH 29.6 MCHC 33.8 RDW Std Deviation 44.5 RDW Coeff of Deven 13.9 Plt Count 145 MPV 9.5 Immature Gran % (Auto) 1.8 Neut % (Auto) 75.7 Lymph % (Auto) 13.0 Irion % (Auto) 8.4 Eos % (Auto) 0.8 Baso % (Auto) 0.3 Immature Gran # (Auto) 0.14 H Neut # (Auto) 5.76 Lymph # (Auto) 0.99 L Irion # (Auto) 0.64 H Eos # (Auto) 0.06 Baso # (Auto) 0.02 PT INR APTT PTT Ratio Sodium 138 Potassium 3.5 Chloride 101 Carbon Dioxide 30 Anion Gap 7.0 BUN 24 H Creatinine 1.19 Est Cr Clr Drug Dosing 51.9 Est GFR ( Amer) 66.0 Est GFR (Non-Af Amer) 56.9 BUN/Creatinine Ratio 19.8 Glucose 106 H Calcium 10.5 H Phosphorus 3.2 Magnesium 2.0 Total Bilirubin 0.6 Direct Bilirubin 0.2 AST 33 ALT 17 Alkaline Phosphatase 85 Total Creatine Kinase 81 Total Protein 7.4 Albumin 3.3 L Globulin 4.1 H Albumin/Globulin Ratio 0.8 L Lipase 113 Prostate Specific Ag Urine Color Urine Appearance Urine pH Ur Specific [place] Urine Protein Urine Glucose (UA) Urine Ketones Urine Blood Urine Nitrite Urine Bilirubin Urine Urobilinogen Ur Leukocyte Esterase Lyme Disease IgG Ab Negative Lyme Disease IgM Ab Negative 09/19/18 09/19/18 09/20/18 13:05 16:59 05:42 WBC 8.37 RBC 3.70 L Hgb 11.2 L Hct 32.4 L MCV 87.6 MCH 30.3 MCHC 34.6 RDW Std Deviation 45.0 RDW Coeff of Deven 14.0 Plt Count 131 MPV 9.4 Immature Gran % (Auto) Neut % (Auto) Lymph % (Auto) [place] % (Auto) Eos % (Auto) Baso % (Auto) Immature Gran # (Auto) Neut # (Auto) Lymph # (Auto) [place] # (Auto) Eos # (Auto) Baso # (Auto) PT 11.6 INR 1.1 APTT 24.5 PTT Ratio 0.9 Sodium Potassium Chloride Carbon Dioxide Anion Gap BUN Creatinine Est Cr Clr Drug Dosing Est GFR ( Amer) Est GFR (Non-Af Amer) BUN/Creatinine Ratio Glucose Calcium Phosphorus Magnesium Total Bilirubin Direct Bilirubin AST ALT Alkaline Phosphatase Total Creatine Kinase Total Protein Albumin Globulin Albumin/Globulin Ratio Lipase Prostate Specific Ag Urine Color Yellow Urine Appearance Clear Urine pH 5.5 Ur Specific [place] 1.035 H Urine Protein Negative Urine Glucose (UA) Negative Urine Ketones Negative Urine Blood Negative Urine Nitrite Negative Urine Bilirubin Negative Urine Urobilinogen Negative Ur Leukocyte Esterase Negative Lyme Disease IgG Ab Lyme Disease IgM Ab 09/20/18 05:42 WBC RBC Hgb Hct MCV MCH MCHC RDW Std Deviation RDW Coeff of Deven Plt Count MPV Immature Gran % (Auto) Neut % (Auto) Lymph % (Auto) [place] % (Auto) Eos % (Auto) Baso % (Auto) Immature Gran # (Auto) Neut # (Auto) Lymph # (Auto) [place] # (Auto) Eos # (Auto) Baso # (Auto) PT INR APTT PTT Ratio Sodium 136 Potassium 4.1 D Chloride 100 Carbon Dioxide 29 Anion Gap 7.0 BUN 27 H Creatinine 0.91 Est Cr Clr Drug Dosing 67.8 Est GFR ( Amer) 91.3 Est GFR (Non-Af Amer) 78.8 BUN/Creatinine Ratio 29.8 H Glucose 129 H Calcium 9.7 Phosphorus Magnesium Total Bilirubin Direct Bilirubin AST ALT Alkaline Phosphatase Total Creatine Kinase Total Protein Albumin Globulin Albumin/Globulin Ratio Lipase Prostate Specific Ag 330.000 H Urine Color Urine Appearance Urine pH Ur Specific [place] Urine Protein Urine Glucose (UA) Urine Ketones Urine Blood Urine Nitrite Urine Bilirubin Urine Urobilinogen Ur Leukocyte Esterase Lyme Disease IgG Ab Lyme Disease IgM Ab
[2018-09-20] MEDS: GABAPENTIN 600 MG TAB PO SCH ×3 (08:02→20:22)
[2018-09-20] MEDS: TAMSULOSIN HCL 0.4 MG CAP PO SCH (08:02)
[2018-09-20] MEDS: FINASTERIDE 5 MG TAB PO SCH (08:02)
[2018-09-20] MEDS: COMBIGAN~ORDER AWAITING ACTION SCH ×3 (08:03→23:51)
--- NOTE | 2018-09-20 13:22 | Radiation OncologyConsultation ---
Date of Consultation September 20, 2018 Assessment & Plan (1) Prostate cancer: Assessment: Mr. 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 He is having significant discomfort in his lower back. Currently he is on pain medication which has helped his pain control temporarily. The patient is having significant discomfort involving the left pelvis and we have been asked to evaluate him for consideration of palliative external beam radiation therapy. I am now seen the patient in consultation to discuss her radiation therapy. Treatment Options: 1. Palliative external beam radiation therapy to the pelvis. 2. Best supportive care including pain medications. Recommendation: Given the clinical picture of enlarged prostate gland with elevated PSA of 330.0 and bone metastasis, I believe it is reasonable to diagnose the patient with metastatic prostate cancer. I have recommended ex ternal beam radiation therapy to the pelvis for palliation. Plan: 1. CT simulation today for treatment planning for radiation therapy. Plan to start radiation therapy in the inpatient or outpatient setting next Sunday. 2. Continue pain medication as per primary team. 3. Firmagon/Lupron and Casodex as per urology for systemic therapy. 4. Continue all other management as per primary team. 5. Patient and family encouraged to call us with any further questions or concerns. Rationale/Explanation of Treatment: I did explain the indications, alternatives, benefits, risks and side effects of external beam radiation therapy. I did explain the most common side effects including, but not limited to, skin erythema, skin breakdown, hyperpigmentation, telangiectasia, wound complications, perianal fistula development, fistula formation, bowel obstruction, bowel perforation, dysuria, increased urinary frequency, urgency, diarrhea, constipation, melena, hematochezia, hematuria, radiation cystitis, radiation proctitis, fatigue, decreased blood counts, wound complications from surgery, rectal incontinence, secondary malignancy development. I did explain the procedures and daily process of radiation therapy. Additionally, I did substance abuse counselor the patient that given his previous history of inflammatory bowel disease, he is at a higher risk of developing gastrointestinal complications including bowel obstruction and bowel perforation. The patient understands and would be willing to consent to treatment. The patient had multiple questions which were answered to his full satisfaction. Additionally, I did speak on the phone with the patient's son, Rainer, and answered all of his questions as well. Thank you for allowing us to participate in the care of this patient. This chart was completed in part utilizing [email or web address] Speech Voice Recognition software. Attempts were made to minimize the grammatical errors, random word insertions, pronoun errors and incomplete sentences. Any formal questions or concerns about the content, text or information contained within the body of this dictation should be directly addressed to the provider for clarification. Cinthya Espinosa MD Department of Radiation Oncology [facility] History of Present Illness Attending Physician: Jermaine Bernal MD History of Present Illness 09/19/2018. Patient presents to emergency room with complaints of thoracic and low back pain radiating to bilateral buttocks that is been increasing over several months. Patient denies any urinary symptoms. Patient admitted to hospital for further work-up and evaluation. 09/19/2018. CT of abdomen/pelvis. IMPRESSION: 1. 10 cm lobulated pelvic mass contiguous with the prostate and bladder base. There are adjacent pathologically enlarged pelvic lymph nodes. 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 Spinal MRI might be considered in follow-up to further evaluate the extent of epidural disease and canal compromise 3. Postsurgical changes are prior colectomy. No evidence of bowel obstruction. No evidence of free air 4. Abdominal aortic aneurysm status post aortoiliac stent grafting. 5. Nonobstructing 3 mm right renal calculus 6. Cholelithiasis. 09/20/2018. PSA. 330.0. 09/20/2018. Urology consultation by Dr. Nicholas Wolfe. Dr. Wolfe has diagnosed the patient with metastatic prostate cancer. Dr. Wolfe has recommended Firmagon with Casodex for systemic therapy. Dr. Wolfe is also recommended consideration of palliative external beam radiation therapy to the pelvis for pain control. Currently, the patient complains of significant lower back pain. He does state that pain medications are helping to improve his pain currently. He denies any significant urinary complaints. He does have a history of inflammatory bowel disease and did have a total colectomy and now has a diverting ileostomy Allergies Allergy/AdvReac Type Severity Reaction Status Date / Time No Known Allergies Allergy Unverified 09/19/18 10:47 Home Medications Home Medications Medication Instructions Recorded Confirmed Type atenolol 25 mg PO HS 09/19/18 09/19/18 History bimatoprost [Lumigan] 1 drp OPB PM 09/19/18 09/19/18 History brimonidine-timolol [Combigan] 1 drp OPB BID 09/19/18 09/19/18 History fexofenadine [Silvia Allergy] 180 mg PO DAILY PRN 09/19/18 09/19/18 History finasteride 5 mg PO DAILY 09/19/18 09/19/18 History gabapentin 600 mg PO TID 09/19/18 09/19/18 History hydrocodone-acetaminophen 1 tab PO Q6H PRN 09/19/18 09/19/18 History ibuprofen 400 mg PO QID PRN 09/19/18 09/19/18 History netarsudil [Rhopressa] 1 drp OPB QAM 09/19/18 09/19/18 History simvastatin 80 mg PO HS 09/19/18 09/19/18 History tamsulosin 0.4 mg PO DAILY 09/19/18 09/19/18 History Patient History Medical History Ulcerative colitis (Chronic) AAA (abdominal aortic aneurysm) (Chronic) S/P repair 05/13/2008 - [facility] [place] BPH (benign prostatic hyperplasia) (Chronic) CAD (coronary artery disease) (Chronic) Dyslipidemia (Chronic) HTN (hypertension) (Chronic) Surgical History Hx of cataract surgery (Chronic) Hx of tonsillectomy (Chronic) History of colostomy (Chronic) History of cardiac catheterization (Chronic) S/P stent RCA in 1999 Family History Other Diabetes Hypertension Social History Communication Ability: Effective Beliefs That Will Affect Care: None Current Living Situation: Family Feels Safe at Home: Yes Safety Concerns: Feels Safe At This Time Smoking Status: Former smoker Smoking End Date: Quit 1989, smoked 1.5ppd x 30 years ; Hx Alcohol Use: No Hx Substance Use: No Review of Systems Constitutional: as per Subjective / HPI Genitourinary: + as per Subjective / HPI Physical Exam Constitutional: WD/WN, vitals as above Musculoskeletal: no cyanosis or clubbing, extremities motor strength 5/5 Results Laboratory Results: were reviewed and pertinent findings noted in HPI Pathology Results: were reviewed and pertinent findings noted in HPI Imaging Studies: were reviewed and pertinent findings noted in HPI Additional Studies 09/19/18 10:59 ECG 12 lead EKG Stat 09/19/18 11:01 CT abd pelvis IV con only Stat 09/20/18 CT guide rad therapy pelvis Routine 09/21/18 08:00 ECG 12 lead EKG Routine 09/23/18 07:30 NM bone scan whole body Routine Time Spent Attending I spent 35 minutes for this consultation, which included obtaining clinical information, performing a physical exam, recommending a plan of action and answering questions. Additionally, I spoke to the son on the phone separately to explain treatment and answers questions. Greater than 50% of the time spent was direct face to face interaction with the patient.
[2018-09-20] MEDS ORDERED: BICALUTAMIDE 50 MG TAB PO SCH (14:00)
[2018-09-20] MEDS: BICALUTAMIDE 50 MG TAB PO SCH ×2 (14:09→20:21)
[2018-09-20] MEDS ORDERED: [UNRECOGNIZED DRUG - OTHER] SQ SCH (18:00)
--- NOTE | 2018-09-20 18:29 | Hospitalist Progress Note ---
Date of Service September 20, 2018 Assessment & Plan (1) Prostate cancer: Malignant neoplasm of prostate and/or bladder with suspected vertebral and lymph node metastasis CT ABD/PELVIS WITH CONTRAST: 1. 10 cm lobulated pelvic mass contiguous with the prostate and bladder base. There are adjacent pathologically enlarged pelvic lymph nodes. 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 Spinal MRI might be considered in follow-up to further evaluate the extent of epidural disease and canal compromise 3. Postsurgical changes are prior colectomy. No evidence of bowel obstruction. No evidence of free air 4. Abdominal aortic aneurysm status post aortoiliac stent grafting. 5. Nonobstructing 3 mm right renal calculus 6. Cholelithiasis evaluated by Urology felt to be prostate CA with Mets Firmagon, Casodex started Radiation Oncology consulted PRN pain medications (2) Pelvic mass: (3) HTN (hypertension): Stable -Continue atenolol (4) CAD (coronary artery disease): S/P stent RCA in 1999 -Continue atenolol, simvastatin (5) AAA (abdominal aortic aneurysm): S/P repair in 2008 (6) BPH (benign prostatic hyperplasia): -Continue finasteride Subjective ff up for prostate neoplasm, back pain seen resting in bed, comfortable states pain is adequately controlled no problems voiding, no hematuria denies chest pain, dyspnea, palpitations no other symptoms Review of Systems Review of Systems: All systems reviewed & are unremarkable except as noted in HPI & below Physical Exam Physical Exam: General- oriented x 3, not in distress, speaks in sentences with no effort or accessory muscle use Eyes- anicteric Neck- no JVD Lungs- clear BS BL no rales/wheezing Heart- normal rate, regular rhythm; no murmurs Abdomen- normal bowel sounds, nondistended, soft, nontender Extremities- no pretibial edema, no calf tenderness Neuro- alert, oriented x 3; no gross focal neurologic deficits Skin- warm & dry Results & Data Vital Signs (Past 12 Hours) Vital Signs Temp Pulse Pulse Resp BP Pulse Ox 09/20/18 15:30 68 09/20/18 15:06 36.6 C 61 20 129/62 93 09/20/18 13:49 36.4 C L 68 16 134/63 95 09/20/18 12:44 71 09/20/18 08:09 36.7 C 59 L 20 144/62 H 94 Laboratory Results Laboratory Results - last 24 hr 09/20/18 09/20/18 05:42 05:42 WBC 8.37 RBC 3.70 L Hgb 11.2 L Hct 32.4 L MCV 87.6 MCH 30.3 MCHC 34.6 RDW Std Deviation 45.0 RDW Coeff of Deven 14.0 Plt Count 131 MPV 9.4 Sodium 136 Potassium 4.1 D Chloride 100 Carbon Dioxide 29 Anion Gap 7.0 BUN 27 H Creatinine 0.91 Est Cr Clr Drug Dosing 67.8 Est GFR ( Amer) 91.3 Est GFR (Non-Af Amer) 78.8 BUN/Creatinine Ratio 29.8 H Glucose 129 H Calcium 9.7 Prostate Specific Ag 330.000 H
[2018-09-20] MEDS: ATENOLOL 25 MG TABLET PO SCH (20:22)
[2018-09-20] MEDS: SIMVASTATIN 80 MG TAB PO SCH (20:25)
[2018-09-20] MEDS: BIMATOPROST 0.01% OP SOLN 2.5 ML BTL OPB SCH (20:26)
[2018-09-21] MEDS: OXYCODONE HCL IR 5 MG TAB (IMMEDIATE RELEASE) PO PRN ×2 (05:12→16:59)
[2018-09-21] MEDS: HEPARIN SOD 5,000 UNIT/0.5 ML VIAL SQ SCH ×2 (05:13→20:29)
[2018-09-21 05:43] LABS: Eosinophils # (auto) 0.03 K/uL (0-0.5); Eosinophils % (auto) 0.3 %; Hematocrit (blood only) 32.8 % (42-52); Immature Granulocytes # (auto) 0.13 K/uL (0.00-0.02); Immature Granulocytes % (auto) 1.5 %; Lymphocytes # (auto) 1.42 K/uL (1.2-3.4); Lymphocytes % (auto) 15.8 %; Mean Corpuscular Hgb Conc 33.5 g/dL (32-36); Mean Corpuscular Volume 86.5 fL (80-100); Mean Platelet Volume 9.7 fL (7.4-10.4); Monocytes # (auto) 0.91 K/uL (0.11-0.59); Monocytes % (auto) 10.2 %; Neutrophils # (auto) 6.47 K/uL (1.4-6.5); Neutrophils % (auto) 72.2 %; Platelet Count 124 K/uL (130-400); RDW Standard Deviation 43.9 fL (36.4-46.3); Red Blood Count 3.79 M/uL (4.7-6.1); White Blood Count 8.96 K/uL (4.8-10.8)
[2018-09-21 06:10] LABS: BUN Creatinine Ratio 35.6 (10-20); Calcium 9.3 mg/dl (8.5-10.1); Creatinine Clr Calc Pharmacy 70.9 ml/min; Est GFR (African American) 93.8; Est GFR (Non-African American) 80.9; Potassium 3.8 mmol/L (3.5-5.1)
[2018-09-21] MEDS ORDERED: POTASSIUM CHLORIDE 20 MEQ TABCR PO STA (07:44)
[2018-09-21] MEDS: TAMSULOSIN HCL 0.4 MG CAP PO SCH (08:22)
[2018-09-21] MEDS: FINASTERIDE 5 MG TAB PO SCH (08:22)
[2018-09-21] MEDS: GABAPENTIN 600 MG TAB PO SCH ×3 (08:22→20:30)
[2018-09-21] MEDS: BICALUTAMIDE 50 MG TAB PO SCH (08:23)
[2018-09-21] MEDS: COMBIGAN~ORDER AWAITING ACTION SCH ×2 (08:24→17:02)
--- NOTE | 2018-09-21 08:37 | Urology Progress Note ---
Date of Service September 21, 2018 Assessment & Plan (1) Prostate cancer: metastatic prostate ca - back pain and imaging findings concerning for pending spinal impingement - started on androgen suppression emergently yesterday (induction dose of firmagon and casodex) - likely can stop casodex after today - rad onc consult yesterday with CT simulation and planned palliative therapy MAGDA - already showing some signs of improvement - likely d/c home early next week with outpt f/u Subjective Doing quite well today - back pain is improved, but not resolved - out of bed (within the room) - fatigued - tolerating a diet Review of Systems Review of Systems: All systems reviewed & are unremarkable except as noted in HPI & below Physical Exam Physical Exam: NAD AAOx3 no resp distress abd soft minimal edema - tender over his lower spine Results & Data Vital Signs (Past 12 Hours) Vital Signs Temp Pulse Pulse Resp BP Pulse Ox 09/21/18 08:07 60 09/21/18 07:17 36.9 C 60 18 135/67 93 09/21/18 04:00 36.8 C 64 20 149/72 H 92 09/20/18 23:44 66 09/20/18 23:00 36.6 C 69 20 136/68 91 PG Care Time/CCT Total # of Minutes Spent Total Time Spent with Patient: Total time spent is greater than 50% in coordination of care (as documented) at patient's floor/unit and/or counseling patient:
--- NOTE | 2018-09-21 12:03 | Hospitalist Progress Note ---
Date of Service September 21, 2018 Assessment & Plan (1) Prostate cancer: Malignant neoplasm of prostate and/or bladder with suspected vertebral and lymph node metastasis CT ABD/PELVIS WITH CONTRAST: 1. 10 cm lobulated pelvic mass contiguous with the prostate and bladder base. There are adjacent pathologically enlarged pelvic lymph nodes. 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 Spinal MRI might be considered in follow-up to further evaluate the extent of epidural disease and canal compromise 3. Postsurgical changes are prior colectomy. No evidence of bowel obstruction. No evidence of free air 4. Abdominal aortic aneurysm status post aortoiliac stent grafting. 5. Nonobstructing 3 mm right renal calculus 6. Cholelithiasis evaluated by Urology likely prostate CA with Mets Firmagon, Casodex started Radiation Oncology consulted- for palliative radiation treatment on Sunday PRN pain medications (2) Pelvic mass: Pt presented to ER with c/o thoracic and low back pain with radiation to bilateral buttocks that has increased over past several months. Reports decreased urinary stream and incomplete bladder emptying. CT ABD/PELVIS WITH CONTRAST: 1. 10 cm lobulated pelvic mass contiguous with the prostate and bladder base. There are adjacent pathologically enlarged pelvic lymph nodes. 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 Spinal MRI might be considered in follow-up to further evaluate the extent of epidural disease and canal compromise 3. Postsurgical changes are prior colectomy. No evidence of bowel obstruction. No evidence of free air 4. Abdominal aortic aneurysm status post aortoiliac stent grafting. 5. Nonobstructing 3 mm right renal calculus 6. Cholelithiasis evaluated by Urology felt to be prostate CA with Mets (3) HTN (hypertension): Stable -Continue atenolol (4) CAD (coronary artery disease): S/P stent RCA in 1999 -Continue atenolol, simvastatin (5) AAA (abdominal aortic aneurysm): S/P repair in 2008 (6) BPH (benign prostatic hyperplasia): -Continue finasteride Subjective ff up for prostate cancer with mets seen resting in bed, sitting up, not in distress feels slightly better overall today pain adequately controlled no problems with urination denies other symptoms Review of Systems Review of Systems: All systems reviewed & are unremarkable except as noted in HPI & below Physical Exam Physical Exam: General- oriented x 3, not in distress, speaks in sentences with no effort or accessory muscle use Eyes- anicteric Neck- no JVD Lungs- clear BS, no rales, BL Heart- normal rate, regular rhythm; no murmurs Abdomen- normal bowel sounds, nondistended, soft, nontender Extremities- no pretibial edema, no calf tenderness Neuro- alert, oriented x 3; no gross focal neurologic deficits Skin- warm & dry Results & Data Vital Signs (Past 12 Hours) Vital Signs Temp Pulse Pulse Resp BP Pulse Ox 09/21/18 11:56 36.9 C 59 L 16 109/41 L 93 09/21/18 08:07 60 09/21/18 07:17 36.9 C 60 18 135/67 93 09/21/18 04:00 36.8 C 64 20 149/72 H 92 Laboratory Results Laboratory Results - last 24 hr 09/21/18 09/21/18 05:02 05:02 WBC 8.96 RBC 3.79 L Hgb 11.0 L Hct 32.8 L MCV 86.5 MCH 29.0 MCHC 33.5 RDW Std Deviation 43.9 RDW Coeff of Deven 14.0 Plt Count 124 L MPV 9.7 Immature Gran % (Auto) 1.5 Neut % (Auto) 72.2 Lymph % (Auto) 15.8 [place] % (Auto) 10.2 Eos % (Auto) 0.3 Baso % (Auto) 0.0 Immature Gran # (Auto) 0.13 H Neut # (Auto) 6.47 Lymph # (Auto) 1.42 [place] # (Auto) 0.91 H Eos # (Auto) 0.03 Baso # (Auto) 0.00 Sodium 136 Potassium 3.8 Chloride 100 Carbon Dioxide 30 Anion Gap 6.0 BUN 31 H Creatinine 0.87 Est Cr Clr Drug Dosing 70.9 Est GFR ( Amer) 93.8 Est GFR (Non-Af Amer) 80.9 BUN/Creatinine Ratio 35.6 H Glucose 100 H Calcium 9.3 Magnesium 2.0 TSH 0.739
[2018-09-21] MEDS: BIMATOPROST 0.01% OP SOLN 2.5 ML BTL OPB SCH (20:30)
[2018-09-21] MEDS: SIMVASTATIN 80 MG TAB PO SCH (20:31)
[2018-09-21] MEDS: ATENOLOL 25 MG TABLET PO SCH (20:31)
[2018-09-21] MEDS: MoRPHine SULFATE 2 MG/ML CARP IV PRN (21:32)
[2018-09-22] MEDS: OXYCODONE HCL IR 5 MG TAB (IMMEDIATE RELEASE) PO PRN ×3 (00:21→21:03)
[2018-09-22] MEDS: COMBIGAN~ORDER AWAITING ACTION SCH ×3 (01:01→17:13)
--- NOTE | 2018-09-22 01:54 | Hospitalist Progress Note ---
Date of Service September 22, 2018 Subjective Made aware by RN of episodic bradycardia in a.m. for 2 consecutive mornings. Cardiac rate 30-40s. Patient comfortable. AP Episodic asymptomatic bradycardia Decrease nighttime beta-ruiz dose. Will relay to AM provider. Results & Data Vital Signs (Past 12 Hours) Vital Signs Temp Pulse Pulse Resp BP Pulse Ox 09/22/18 01:46 33 L 09/22/18 01:24 42 L 09/21/18 23:12 37 C 65 20 126/69 92 09/21/18 22:54 57 L 09/21/18 19:00 37.2 C 72 20 138/67 93 09/21/18 16:00 63 09/21/18 15:22 36.8 C 65 16 130/64 95
[2018-09-22] MEDS: MoRPHine SULFATE 2 MG/ML CARP IV PRN (03:14)
[2018-09-22] MEDS: TAMSULOSIN HCL 0.4 MG CAP PO SCH (08:09)
[2018-09-22] MEDS: GABAPENTIN 600 MG TAB PO SCH ×3 (08:09→21:05)
[2018-09-22] MEDS: FINASTERIDE 5 MG TAB PO SCH (08:10)
[2018-09-22] MEDS: HEPARIN SOD 5,000 UNIT/0.5 ML VIAL SQ SCH ×2 (08:10→21:06)
--- NOTE | 2018-09-22 12:27 | Urology Progress Note ---
Date of Service September 22, 2018 Assessment & Plan (1) Prostate cancer: Improving appropriately palliative radiation will arrange for appropriate outpt follow up Subjective improving ambulating decreased pain appetite is better Review of Systems Review of Systems: All systems reviewed & are unremarkable except as noted in HPI & below Physical Exam Physical Exam: NAD AAox3 no resp distress RRR abd soft Results & Data Vital Signs (Past 12 Hours) Vital Signs Temp Pulse Pulse Resp BP Pulse Ox 09/22/18 11:32 36.9 C 66 20 120/52 L 92 09/22/18 07:43 36.8 C 61 20 134/67 92 09/22/18 03:55 36.8 C 57 L 20 137/70 94 09/22/18 01:46 33 L 09/22/18 01:24 42 L PG Care Time/CCT Total # of Minutes Spent Total Time Spent with Patient: Total time spent is greater than 50% in coordination of care (as documented) at patient's floor/unit and/or counseling patient:
--- NOTE | 2018-09-22 16:13 | Hospitalist Progress Note ---
Date of Service September 22, 2018 Assessment & Plan (1) Prostate cancer: Malignant neoplasm of prostate and/or bladder with suspected vertebral and lymph node metastasis CT ABD/PELVIS WITH CONTRAST: 1. 10 cm lobulated pelvic mass contiguous with the prostate and bladder base. There are adjacent pathologically enlarged pelvic lymph nodes. 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 Spinal MRI might be considered in follow-up to further evaluate the extent of epidural disease and canal compromise 3. Postsurgical changes are prior colectomy. No evidence of bowel obstruction. No evidence of free air 4. Abdominal aortic aneurysm status post aortoiliac stent grafting. 5. Nonobstructing 3 mm right renal calculus 6. Cholelithiasis evaluated by Urology likely prostate CA with Mets Firmagon, Casodex started Radiation Oncology consulted- for palliative radiation treatment tomorrow will consult Pain Management (2) Pelvic mass: Pt presented to ER with c/o thoracic and low back pain with radiation to bilateral buttocks that has increased over past several months. Reports decreased urinary stream and incomplete bladder emptying. CT ABD/PELVIS WITH CONTRAST: 1. 10 cm lobulated pelvic mass contiguous with the prostate and bladder base. There are adjacent pathologically enlarged pelvic lymph nodes. 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 Spinal MRI might be considered in follow-up to further evaluate the extent of epidural disease and canal compromise 3. Postsurgical changes are prior colectomy. No evidence of bowel obstruction. No evidence of free air 4. Abdominal aortic aneurysm status post aortoiliac stent grafting. 5. Nonobstructing 3 mm right renal calculus 6. Cholelithiasis evaluated by Urology felt to be prostate CA with Mets (3) HTN (hypertension): Stable bradycardic overnight Atenolol reduced to 12.5mg daily, monitor (4) CAD (coronary artery disease): S/P stent RCA in 1999 -Continue atenolol, simvastatin (5) AAA (abdominal aortic aneurysm): S/P repair in 2008 (6) BPH (benign prostatic hyperplasia): -Continue finasteride Disposition PT/OT eval lives with family at home Subjective ff up for prostate cancer with mets seen sitting up in chair, comfortable back pain adequately controlled, can move better denies problems with urination no chest pain, dyspnea, palpitations, dizziness no other symptoms Review of Systems Review of Systems: All systems reviewed & are unremarkable except as noted in HPI & below Physical Exam Physical Exam: General- oriented x 3, not in distress, speaks in sentences with no effort or accessory muscle use Eyes- anicteric Neck- no JVD Lungs- clear breath sounds bilaterally Heart- normal rate, regular rhythm; no murmurs Abdomen- normal bowel sounds, nondistended, soft, no tenderness Extremities- no pretibial edema, no calf tenderness Neuro- alert, oriented x 3; no gross focal neurologic deficits Skin- warm & dry Results & Data Vital Signs (Past 12 Hours) Vital Signs Temp Pulse Pulse Resp BP Pulse Ox 09/22/18 14:52 36.9 C 71 20 117/62 90 09/22/18 12:25 55 L 09/22/18 11:32 36.9 C 66 20 120/52 L 92 09/22/18 07:43 36.8 C 61 20 134/67 92
[2018-09-22] MEDS ORDERED: ATENOLOL 25 MG TABLET PO SCH (21:00)
[2018-09-22] MEDS: BIMATOPROST 0.01% OP SOLN 2.5 ML BTL OPB SCH (21:06)
[2018-09-22] MEDS: SIMVASTATIN 80 MG TAB PO SCH (21:07)
[2018-09-23] MEDS: COMBIGAN~ORDER AWAITING ACTION SCH ×4 (00:23→23:33)
[2018-09-23] MEDS: OXYCODONE HCL IR 5 MG TAB (IMMEDIATE RELEASE) PO PRN ×3 (02:55→23:38)
[2018-09-23] MEDS: MoRPHine SULFATE 2 MG/ML CARP IV PRN ×2 (06:59→11:56)
[2018-09-23] MEDS: HEPARIN SOD 5,000 UNIT/0.5 ML VIAL SQ SCH ×2 (07:41→21:01)
[2018-09-23] MEDS: TAMSULOSIN HCL 0.4 MG CAP PO SCH (07:41)
[2018-09-23] MEDS: GABAPENTIN 600 MG TAB PO SCH ×3 (07:42→21:01)
[2018-09-23] MEDS: FINASTERIDE 5 MG TAB PO SCH (07:42)
--- NOTE | 2018-09-23 09:41 | Hospitalist Progress Note ---
Date of Service September 23, 2018 Assessment & Plan (1) Prostate cancer: Malignant neoplasm of prostate and/or bladder with suspected vertebral and lymph node metastasis CT ABD/PELVIS WITH CONTRAST: 1. 10 cm lobulated pelvic mass contiguous with the prostate and bladder base. There are adjacent pathologically enlarged pelvic lymph nodes. 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 Spinal MRI might be considered in follow-up to further evaluate the extent of epidural disease and canal compromise 3. Postsurgical changes are prior colectomy. No evidence of bowel obstruction. No evidence of free air 4. Abdominal aortic aneurysm status post aortoiliac stent grafting. 5. Nonobstructing 3 mm right renal calculus 6. Cholelithiasis evaluated by Urology likely prostate CA with Mets Firmagon, Casodex started Radiation Oncology consulted- for palliative radiation treatment today Pain Management consulted (2) Pelvic mass: Pt presented to ER with c/o thoracic and low back pain with radiation to bilateral buttocks that has increased over past several months. Reports decreased urinary stream and incomplete bladder emptying. CT ABD/PELVIS WITH CONTRAST: 1. 10 cm lobulated pelvic mass contiguous with the prostate and bladder base. There are adjacent pathologically enlarged pelvic lymph nodes. 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 Spinal MRI might be considered in follow-up to further evaluate the extent of epidural disease and canal compromise 3. Postsurgical changes are prior colectomy. No evidence of bowel obstruction. No evidence of free air 4. Abdominal aortic aneurysm status post aortoiliac stent grafting. 5. Nonobstructing 3 mm right renal calculus 6. Cholelithiasis evaluated by Urology felt to be prostate CA with Mets (3) HTN (hypertension): Stable overnight had episodes of bradycardia overnight- sleeping HOLD Atenolol for now monitor in Tele (4) CAD (coronary artery disease): S/P stent RCA in 1999 Atenolol on hold for bradycardia continue Simvastatin (5) AAA (abdominal aortic aneurysm): S/P repair in 2008 (6) BPH (benign prostatic hyperplasia): -Continue finasteride Disposition PT/OT eval lives with family at home Subjective ff up for prostate cancer with mets to the spine seen resting in bed, comfortable states pain is still about the same-- Morphine and Oxycodone helping no problems with urination no abdominal pain denies dizziness, syncope/pre-syncope, chest pain, palpitations, dyspnea no other symptoms Review of Systems Review of Systems: All systems reviewed & are unremarkable except as noted in HPI & below Physical Exam Physical Exam: General- oriented x 3, not in distress, speaks in sentences with no effort or accessory muscle use Eyes- anicteric Neck- no JVD Lungs- clear BS, no rales BL Heart- normal rate, regular rhythm; no murmurs Abdomen- normal bowel sounds, nondistended, soft, nontender Extremities- no pretibial edema, no calf tenderness Neuro- alert, oriented x 3; no gross focal neurologic deficits Skin- warm & dry Results & Data Vital Signs (Past 12 Hours) Vital Signs Temp Pulse Pulse Pulse Resp BP Pulse Ox 09/23/18 08:21 76 09/23/18 07:00 36.6 C 63 21 112/63 93 09/23/18 03:10 36.8 C 67 20 127/70 91 09/23/18 02:20 32 L 09/23/18 01:46 41 L 09/23/18 01:13 40 L 09/23/18 00:12 41 L 09/23/18 00:00 76 09/22/18 23:33 37.3 C 74 20 135/73 91 09/22/18 22:40 32 L
--- NOTE | 2018-09-23 11:27 | Nuclear Medicine Report ---
NM bone scan whole body CLINICAL HISTORY: 83 years-old Male presenting with met CaP, severe low back pain, pelvic mass, incre asing PSA. TECHNIQUE: Planar anterior and posterior imaging of the whole body was performed 3 hours following th e intravenous administration of 27.5 mCi Tc-99m MDP. COMPARISON: CT of the abdomen and pelvis from 09/19/2018. FINDINGS: A left upper extremity injection is presumed with focal radiotracer avidity at the level of the left antecubital fossa either from extravasation or from lymph node uptake. Focal radiotracer avidity in the region of the manubrium, coracoid processes left greater than right, anterior right fifth and seventh ribs, T9, T10, T11 and L1 vertebral bodies, and left pubis are susp icious for focal lesions. More vague abnormal foci of radiotracer avidity are noted throughout multip le ribs. Focal radiotracer avidity along the left femoral head along the superior lateral aspect, indeterminat e. Faint radiotracer avidity in the region of the right knee, left carpus, and more diffusely within the spine most likely related to degenerative change. Expected excretion of radiotracer in the urinary collecting system and bladder. IMPRESSION: 1. Findings highly suspicious for multifocal osseous metastatic disease. Several of these correlate with lytic lesions on recent CT. 2. Multifocal involvement of the spine is suspected, including L1. Notably, L1 previously demonstrat ed a compression deformity, which may be pathologic. 3. Avidity in the region of the left femoral head is indeterminate and may relate to degenerative ch sheyla given the classic position. Some additional sites are somewhat indeterminate given the less pron ounced radiotracer avidity. 4. Multifocal degenerative changes are also noted as detailed above. Electronically signed by: Alfonso Vincent M.D. 09/23/2018 11:26 AM
--- NOTE | 2018-09-23 11:34 | Pain Management Consultation ---
Date of Consultation September 23, 2018 History of Present Illness Attending Physician: Jermaine Bernal MD History of Present Illness Attempts were made to see this patient on rounds this morning. Patient was not in the room. We will see the patient on rounds tomorrow. Allergies Allergy/AdvReac Type Severity Reaction Status Date / Time No Known Allergies Allergy Unverified 09/19/18 10:47 Home Medications Home Medications Medication Instructions Recorded Confirmed Type atenolol 25 mg PO HS 09/19/18 09/19/18 History bimatoprost [Lumigan] 1 drp OPB PM 09/19/18 09/19/18 History brimonidine-timolol [Combigan] 1 drp OPB BID 09/19/18 09/19/18 History fexofenadine [Silvia Allergy] 180 mg PO DAILY PRN 09/19/18 09/19/18 History finasteride 5 mg PO DAILY 09/19/18 09/19/18 History gabapentin 600 mg PO TID 09/19/18 09/19/18 History hydrocodone-acetaminophen 1 tab PO Q6H PRN 09/19/18 09/19/18 History ibuprofen 400 mg PO QID PRN 09/19/18 09/19/18 History netarsudil [Rhopressa] 1 drp OPB QAM 09/19/18 09/19/18 History simvastatin 80 mg PO HS 09/19/18 09/19/18 History tamsulosin 0.4 mg PO DAILY 09/19/18 09/19/18 History Patient History Medical History Ulcerative colitis (Chronic) AAA (abdominal aortic aneurysm) (Chronic) [place] [facility] [place]PH (benign prostatic hyperplasia) (Chronic) CAD (coronary artery disease) (Chronic) Dyslipidemia (Chronic) HTN (hypertension) (Chronic) Surgical History Hx of cataract surgery (Chronic) Hx of tonsillectomy (Chronic) History of colostomy (Chronic) History of cardiac catheterization (Chronic) S/P stent RCA in 1999 Family History Other Diabetes Hypertension Social History Communication Ability: Effective Beliefs That Will Affect Care: None Current Living Situation: Family Feels Safe at Home: Yes Safety Concerns: Feels Safe At This Time Smoking Status: Former smoker Smoking End Date: Quit 1989, smoked 1.5ppd x 30 years ; Hx Alcohol Use: No Hx Substance Use: No PG Care Time/CCT Total # of Minutes Spent Total Time Spent with Patient: Total time spent is greater than 50% in coordination of care (as documented) at patient's floor/unit and/or counseling patient:
[2018-09-23] MEDS: SIMVASTATIN 80 MG TAB PO SCH (21:02)
[2018-09-23] MEDS: BIMATOPROST 0.01% OP SOLN 2.5 ML BTL OPB SCH (21:02)
[2018-09-24] MEDS: OXYCODONE HCL IR 5 MG TAB (IMMEDIATE RELEASE) PO PRN ×3 (05:27→23:41)
[2018-09-24] MEDS: COMBIGAN~ORDER AWAITING ACTION SCH ×3 (07:21→23:26)
[2018-09-24] MEDS: TAMSULOSIN HCL 0.4 MG CAP PO SCH (08:01)
[2018-09-24] MEDS: GABAPENTIN 600 MG TAB PO SCH ×3 (08:01→20:52)
[2018-09-24] MEDS: HEPARIN SOD 5,000 UNIT/0.5 ML VIAL SQ SCH ×2 (08:01→20:52)
[2018-09-24] MEDS: FINASTERIDE 5 MG TAB PO SCH (08:01)
[2018-09-24] MEDS ORDERED: POLYETHYLENE (MIRALAX) 17 GM PACK PO PRN (08:45)
[2018-09-24] MEDS ORDERED: fentaNYL 12 MCG/HR TDSY TD SCH (09:00)
[2018-09-24] MEDS: DULOXETINE HCL 20 MG CAP PO SCH (10:32)
[2018-09-24] MEDS: MoRPHine SULFATE 2 MG/ML CARP IV PRN (10:32)
--- NOTE | 2018-09-24 12:55 | Pain Management Consultation ---
Date of Consultation September 24, 2018 Assessment & Plan (1) Prostate cancer: 1. Recommend initiation of fentanyl 12 mcg patch every 72 hours. Continue utilization of OxyIR 5 mg p.o. every 6 as needed with IV morphine back up. Orders are written 2. The patient was counseled about possible constipation or decreased ileostomy output with increasing narcotics. MiraLAX written as needed. Patient to monitor 3. Patient is not a candidate for interventional pain management this time 4. Recommend initiation of Cymbalta 20 mg p.o. every morning. He was counseled on the potential side effects and mechanism of action. Orders are written 5. We will continue to follow. Patient is welcome to follow-up in our office post discharge for further adjustment of medications at this time. 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 The patient had an initial dose of palliative radiation therapy yesterday. He reports that his pain is typically between 2-3 out of 10 while at rest and ranges between 4 and 6 out of 10 with activity. He states that pain is characterized as aching and constant pressure type sensation. He denies any radiation distal to the buttock. He reports mild efficacy with oxycodone 5 mg p.o. every 6 utilizing a total of 3 doses yesterday and 1 dose of 2 mg of IV morphine. He denies any side effects of the medications including constipation as he has an ileostomy. He reports normal output of his ileostomy. He denies any motor weakness, footdrop, fever, chills, night sweats at this time. The patient reports what sounds to be caudal epidural steroid injections in the recent past without efficacy. Pain Assessment Full Body Front + Back: 1. Allergies Allergy/AdvReac Type Severity Reaction Status Date / Time No Known Allergies Allergy Unverified 09/19/18 10:47 Home Medications Home Medications Medication Instructions Recorded Confirmed Type atenolol 25 mg PO HS 09/19/18 09/19/18 History bimatoprost [Lumigan] 1 drp OPB PM 09/19/18 09/19/18 History brimonidine-timolol [Combigan] 1 drp OPB BID 09/19/18 09/19/18 History fexofenadine [Silvia Allergy] 180 mg PO DAILY PRN 09/19/18 09/19/18 History finasteride 5 mg PO DAILY 09/19/18 09/19/18 History gabapentin 600 mg PO TID 09/19/18 09/19/18 History hydrocodone-acetaminophen 1 tab PO Q6H PRN 09/19/18 09/19/18 History ibuprofen 400 mg PO QID PRN 09/19/18 09/19/18 History netarsudil [Rhopressa] 1 drp OPB QAM 09/19/18 09/19/18 History simvastatin 80 mg PO HS 09/19/18 09/19/18 History tamsulosin 0.4 mg PO DAILY 09/19/18 09/19/18 History Pain History Cause Cause of Pain: Spontaneous Timing Timing: constant Character Pain character: aching and dull Activity Factors Exacerbated by: prolonged standing, prolonged walking and exercise Improved by: lying in bed Previous Treatment Treatments: injections (epi, joint, etc.) and other Medications: Acetaminophen, Gabapentin and Narcotics Current or Pending Litigation Current or Pending Litigation: No Patient History Medical History Ulcerative colitis (Chronic) AAA (abdominal aortic aneurysm) (Chronic) S/P repair 05/13/2008 - [facility] [place] BPH (benign prostatic hyperplasia) (Chronic) CAD (coronary artery disease) (Chronic) Dyslipidemia (Chronic) HTN (hypertension) (Chronic) Surgical History Hx of cataract surgery (Chronic) Hx of tonsillectomy (Chronic) History of colostomy (Chronic) History of cardiac catheterization (Chronic) S/P stent RCA in 1999 Family History Other Diabetes Hypertension Social History Communication Ability: Effective Beliefs That Will Affect Care: None Current Living Situation: Family Feels Safe at Home: Yes Safety Concerns: Feels Safe At This Time Smoking Status: Former smoker Smoking End Date: Quit 1989, smoked 1.5ppd x 30 years ; Hx Alcohol Use: No Hx Substance Use: No Physical Exam Physical Exam: Constitutional: Well-developed, well-nourished, healthy- appearing, normal weight. Pleasant and cooperative on examination Psych: Awake, alert, and oriented 3 with normal affect and mood. Recent memory appears grossly intact Eyes: Pupils are equally round and reactive to light with normal size pupils, eyelids appear normal Ear, nose, mouth, and throat: Moist nasal and oral membranes, lips and tongues appear normal, no external ear abnormalities are noted Neck: The trachea is midline without deviation and no thyromegaly is noted Respiratory: Normal respiratory effort without distress, no audible wheezes or rhonchi CV: Normal S1 and S2 Chest: Deferred GI/abdomen: Non-tender without guarding, ileostomy noted. Musculoskeletal: Head is normocephalic and atraumatic, gait was not observed Cervical: Lordotic curve: Normal Range of motion is normal with extension, flexion, side-bending, rotation Strength: Strength is grossly equal bilaterally with 5 out of 5 strength in all planes Sensation of upper extremities: Intact bilaterally Thoracic: Kyphotic curve: Normal Range of motion is decreased with extension, flexion, side-bending, rotation Tenderness: Mildly tender over the axial midline from about T9 to the lumbosacral junction Facet provocation: Negative bilaterally Myofascial spasm: No appreciable spasm. No discrete trigger points noted Lumbar: Lordotic curve: Slight loss of lumbar lordosis Range of motion is decreased in all planes Tenderness: Mild to moderately tender over the axial midline prickly at the lumb osacral junction Facet provocation: Negative bilaterally Straight leg raise: Negative bilaterally Step-off injuries: None Strength: Strength is equal bilaterally with 5 out of 5 strength in all planes Sensation of lower extremities: Intact bilaterally Deep tendon reflexes: Rated at 1+ in bilateral L4 and S1 Myofascial spasm: No appreciable spasm. No discrete trigger points noted Greater trochanters: Nontender bilaterally Sacroiliac joints: Nontender bilaterally Pathologic reflexes noted: None Skin: No rashes, lesions, ulcers, or induration noted Neuro: No nystagmus noted, the tongue is midline, the patient is able to rotate their head bilaterally : Deferred Results Diagnostic Review CT: reports reviewed and findings discussed with patient CT Findings: Patient: SAAD SARAVIAAdmit Date: 09/19/18 MR#: [id number]: [id number] Acct ID:[id number]: Date: 1935City Zip: [place] [address] Age: 83Location: ED Sex: M Room/Bed: Att Phy: Diagnosis: BACK PAIN Martha Phy: Patrick Calero DOService Date: 09/19/18 Fam Phy: Interpreting Phy: Hieu Mims MD Admit Phy: Ordering Phy: Kvng Arango M.D. cc: ~ CT abd pelvis IV con only CLINICAL HISTORY: lower back pain, ostomy COMPARISON STUDY: June 25, 2015 TECHNIQUE: Patient was scanned in a dynamic helical fashion during intravenous administration of 94 cc Optiray 320. A dose lowering technique was utilized adhering to the principles of ALARA. CT DOSE: 1284.47 mGy.cm FINDINGS: Lower chest: There are dependent atelectatic changes. 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 There is mural thrombus present. Liver: The contrast-enhanced liver is normal in size, contour, and attenuation. There is no intrahepatic biliary ductal dilatation. The hepatic veins and portal veins are patent. Gallbladder: Cholelithiasis Spleen: Normal in size and attenuation. Pancreas: Unremarkable. Adrenal glands: Unremarkable. Kidneys: There is a 3 mm nonobstructing right renal calculus. There is no hydronephrosis. There are multiple bilateral renal cysts measuring up to 4.8 cm in diameter. Bowel: There are no transition zones to indicate bowel obstruction. There is a right lower quadrant ileostomy. The patient appears be status post a prior colectomy. Peritoneum: There is no intraperitoneal free air or abdominal ascites. Vasculature: There is a 4.8 cm infrarenal abdominal aortic aneurysm status post aortoiliac stent grafting. Adenopathy: There are enlarged bilateral low pelvic lymph nodes. Pelvic viscera: There is a 10 cm lobulated pelvic mass contiguous with the prostate and bladder base. There are adjacent pathologically enlarged pelvic lymph nodes. The findings are consistent with a neoplasm. Skeletal structures: There are lytic bone lesions involving the ischial bilaterally and left symphysis. There are lytic lesions within the sacrum, including a 5 cm left-sided lesion with epidural extension. There are lytic lesions present within the lumbar and lower thoracic spine. A 14 mm T10 lesion demonstrates epidural extension on the left. A T11 lesion also demonstrates susp ected epidural extension IMPRESSION: 1. 10 cm lobulated pelvic mass contiguous with the prostate and bladder base. There are adjacent pathologically enlarged pelvic lymph nodes. 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 Extensive lytic bony metastasis with several areas of epidural extension i ncluding the T10 level, T11 level, and sacral level. Spinal MRI might be considered in follow-up to further evaluate the extent of epidural disease and canal compromise 3. Postsurgical changes are prior colectomy. No evidence of bowel obstruction. No evidence of free air 4. Abdominal aortic aneurysm status post aortoiliac stent grafting. 5. Nonobstructing 3 mm right renal calculus 6. Cholelithiasis Other Findings: [place], [place] [phone] Nuclear Medicine Report Patient: SAAD SARAVIAAdmit Date: 09/19/18 MR#: [id number] Acct ID:[id number]: Date: 1935ty Zip: [place] [address] Age: 83Location: 2W Sex: M Room/Bed: [facility] Att Phy: Jermaine Bernal MDDiagnosis: BACK PAIN, PELVIC MASS Martha Phy: Patrick Calero DOService Date: 09/23/18 Fam Phy: Interpreting Phy: Alfonso Vincent MD Admit Phy: Jermaine Bernal MD Ordering Phy: Lizzie Mendoza cc: ~ NM bone scan whole body CLINICAL HISTORY: 83 years-old Male presenting with met CaP, severe low back pain, pelvic mass, increasing PSA. TECHNIQUE: Planar anterior and posterior imaging of the whole body was performed 3 hours following the intravenous administration of 27.5 mCi Tc-99m MDP. COMPARISON: CT of the abdomen and pelvis from 09/19/2018. FINDINGS: A left upper extremity injection is presumed with focal radiotracer avidity at the level of the left antecubital fossa either from extravasation or from lymph node uptake. Focal radiotracer avidity in the region of the manubrium, coracoid processes left greater than right, anterior right fifth and seventh ribs, T9, T10, T11 and L1 vertebral bodies, and left pubis are suspicious for focal lesions. More vag ue abnormal foci of radiotracer avidity are noted throughout multiple ribs. Focal radiotracer avidity along the left femoral head along the superior lateral aspect, indeterminate. Faint radiotracer avidity in the region of the right knee, left carpus, and more diffusely within the spine most likely related to degenerative change. Expected excretion of radiotracer in the urinary collecting system and bladder. IMPRESSION: 1. Findings highly suspicious for multifocal osseous metastatic disease. Several of these correlate with lytic lesions on recent CT. 2. Multifocal involvement of the spine is suspected, including L1. Notably, L1 previously demonstrated a compression deformity, which may be pathologic. 3. Avidity in the region of the left femoral head is indeterminate and may rela te to degenerative change given the classic position. Some additional sites are somewhat indeterminate given the less pronounced radiotracer avidity. 4. Multifocal degenerative changes are also noted as detailed above. Previous Records Review Previous Records: personally reviewed by me Opioid Risk Assessment Opioid Risk Assessment: risk assessment performed and no issues identified
[2018-09-24] MEDS: CHECK FENTANYL PATCH PLACEMENT SCH ×2 (15:01→23:38)
[2018-09-24 15:46] LABS: Basophils # (auto) 0.02 K/uL (0-0.2); Basophils % (auto) 0.4 %; Eosinophils # (auto) 0.14 K/uL (0-0.5); Eosinophils % (auto) 2.5 %; Hematocrit (blood only) 31.7 % (42-52); Hemoglobin 10.8 g/dL (14.0-18.0); Immature Granulocytes # (auto) 0.09 K/uL (0.00-0.02); Immature Granulocytes % (auto) 1.6 %; Lymphocytes % (auto) 14.5 %; Mean Corpuscular Hgb Conc 34.1 g/dL (32-36); Mean Corpuscular Volume 85.7 fL (80-100); Mean Platelet Volume 9.8 fL (7.4-10.4); Monocytes # (auto) 0.67 K/uL (0.11-0.59); Monocytes % (auto) 12.2 %; Neutrophils # (auto) 3.78 K/uL (1.4-6.5); Neutrophils % (auto) 68.8 %; Platelet Count 117 K/uL (130-400); RDW Coefficient of Variation 13.8 % (11.5-14.5); RDW Standard Deviation 43.2 fL (36.4-46.3)
[2018-09-24 16:04] LABS: BUN Creatinine Ratio 27.7 (10-20); Calcium 9.3 mg/dl (8.5-10.1); Creatinine Clr Calc Pharmacy 70.9 ml/min; Est GFR (African American) 93.8; Est GFR (Non-African American) 80.9; Magnesium 2.2 mg/dl (1.8-2.4); Potassium 4.5 mmol/L (3.5-5.1)
--- NOTE | 2018-09-24 18:05 | Hospitalist Progress Note ---
Date of Service September 24, 2018 Assessment & Plan (1) Prostate cancer: Malignant neoplasm of prostate and/or bladder with suspected vertebral and lymph node metastasis CT ABD/PELVIS WITH CONTRAST: 1. 10 cm lobulated pelvic mass contiguous with the prostate and bladder base. There are adjacent pathologically enlarged pelvic lymph nodes. 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 Spinal MRI might be considered in follow-up to further evaluate the extent of epidural disease and canal compromise 3. Postsurgical changes are prior colectomy. No evidence of bowel obstruction. No evidence of free air 4. Abdominal aortic aneurysm status post aortoiliac stent grafting. 5. Nonobstructing 3 mm right renal calculus 6. Cholelithiasis evaluated by Urology likely prostate CA with Mets Firmagon, Casodex started Finasteride continued Radiation Oncology consulted-session 2 out of 10 radiation therapy completed Pain Management consulted-fentanyl patch and Cymbalta started Continue to monitor response to fentanyl patch and Cymbalta Discharge to home when medically stable, pain well controlled, ambulating well Follow-up with urologist and radiation oncologist on discharge (2) Pelvic mass: Pt presented to ER with c/o thoracic and low back pain with radiation to bilateral buttocks that has increased over past several months. Reports decreased urinary stream and incomplete bladder emptyingCT ABD/PELVIS WITH CONTRAST: 1. 10 cm lobulated pelvic mass contiguous with the prostate and bladder base. There are adjacent pathologically enlarged pelvic lymph nodes. 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 Spinal MRI might be considered in follow-up to further evaluate the extent of epidural disease and canal compromise 3. Postsurgical changes are prior colectomy. No evidence of bowel obstruction. No evidence of free air 4. Abdominal aortic aneurysm status post aortoiliac stent grafting. 5. Nonobstructing 3 mm right renal calculus 6. Cholelithiasis evaluated by Urology felt to be prostate CA with Mets (3) First degree AV block: Noted to have episodes of intermittent bradycardia by telemetry Patient asymptomatic, blood pressure stable Atenolol already held since yesterday No other medications contributing to bradycardia, TSH normal Check echocardiogram to rule out cardiac involvement of prostate cancer If persistent, may need cardiology evaluation (4) HTN (hypertension): Stable overnight had episodes of bradycardia HOLD Atenolol for now monitor in Tele (5) CAD (coronary artery disease): S/P stent RCA in 1999 Atenolol on hold for bradycardia continue Simvastatin (6) AAA (abdominal aortic aneurysm): S/P repair in 2008 Disposition PT/OT evaluation in progress, follow-up recommendation lives with family at home Follow-up with PCP, urologist Dr. Liz, radiation oncologist Dr. Espinosa Subjective Follow-up for prostate cancer with mets Seen resting in bed, comfortable, in good spirit Had second session of palliative radiation therapy today Tolerated well Back pain improving but still has breakthrough pain No problems with urination or bowel movement Noted to have episodes of bradycardia by telemetry Patient denies having dizziness, lightheadedness, presyncope/syncope, chest pain, shortness of breath, palpitation Denies other symptoms Review of Systems Review of Systems: All systems reviewed & are unremarkable except as noted in HPI & below Physical Exam Physical Exam: General- oriented x 3, not in distress, speaks in sentences with no effort or accessory muscle use Eyes- anicteric Neck- no JVD Lungs- clear BS, no crackles, no wheezing bilaterally Heart- normal rate, regular rhythm; no murmurs Abdomen- normal bowel sounds, nondistended, soft, no tenderness Extremities- no pretibial edema, no calf tenderness Neuro- alert, oriented x 3; no gross focal neurologic deficits Skin- warm & dry Results & Data Vital Signs (Past 12 Hours) Vital Signs Temp Pulse Pulse Resp BP Pulse Ox 09/24/18 15:47 36.8 C 79 18 121/70 92 09/24/18 15:19 76 09/24/18 08:42 62 09/24/18 07:56 36.4 C L 64 18 135/68 94 Laboratory Results Laboratory Results - last 24 hr 09/24/18 09/24/18 15:23 15:23 WBC 5.50 RBC 3.70 L Hgb 10.8 L Hct 31.7 L MCV 85.7 MCH 29.2 MCHC 34.1 RDW Std Deviation 43.2 RDW Coeff of Deven 13.8 Plt Count 117 L MPV 9.8 Immature Gran % (Auto) 1.6 Neut % (Auto) 68.8 Lymph % (Auto) 14.5 Adams % (Auto) 12.2 Eos % (Auto) 2.5 Baso % (Auto) 0.4 Immature Gran # (Auto) 0.09 H Neut # (Auto) 3.78 Lymph # (Auto) 0.80 L Adams # (Auto) 0.67 H Eos # (Auto) 0.14 Baso # (Auto) 0.02 Sodium 130 L Potassium 4.5 Chloride 94 L Carbon Dioxide 30 Anion Gap 6.0 BUN 24 H Creatinine 0.87 Est Cr Clr Drug Dosing 70.9 Est GFR ( Amer) 93.8 Est GFR (Non-Af Amer) 80.9 BUN/Creatinine Ratio 27.7 H Glucose 112 H Calcium 9.3 Magnesium 2.2
[2018-09-24] MEDS: BIMATOPROST 0.01% OP SOLN 2.5 ML BTL OPB SCH (20:52)
[2018-09-24] MEDS: SIMVASTATIN 80 MG TAB PO SCH (20:53)
[2018-09-25] MEDS: OXYCODONE HCL IR 5 MG TAB (IMMEDIATE RELEASE) PO PRN (05:51)
[2018-09-25] MEDS: COMBIGAN~ORDER AWAITING ACTION SCH (07:18)
[2018-09-25] MEDS: DULOXETINE HCL 20 MG CAP PO SCH (07:42)
[2018-09-25] MEDS: FINASTERIDE 5 MG TAB PO SCH (07:42)
[2018-09-25] MEDS: HEPARIN SOD 5,000 UNIT/0.5 ML VIAL SQ SCH ×2 (07:42→20:42)
[2018-09-25] MEDS: GABAPENTIN 600 MG TAB PO SCH ×3 (07:42→20:41)
[2018-09-25] MEDS: TAMSULOSIN HCL 0.4 MG CAP PO SCH (07:42)
[2018-09-25] MEDS: CHECK FENTANYL PATCH PLACEMENT SCH ×3 (07:43→23:42)
--- NOTE | 2018-09-25 08:56 | Pain Management Progress Note ---
Date of Service September 25, 2018 Assessment & Plan (1) Metastatic disease: 1. Continue Cymbalta 20mg daily. 2. Fentanyl patch was increased to 25mcg. 3. Oxycodone 5mg was changed from x 6 hours to x 4 hours PRN. 4. Keep IV Morphine if needed for breakthrough pain. 5. Will follow up with the patient tomorrow. Subjective Mr. 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 His pain complaint is 100% axial. Patient was initiated on Fentanyl 12mcg yesterday which he states is slightly helpful. He did have difficulty with pain throughout the evening. The Oxycodone was o rdered for every 6 hours and he needed it sooner. He was reporting pain levels of 7 and 8 last night. This morning he is a 4/10. Patient denies any side effects including constipation, confusion, dizziness, or drowsiness. Case discussed with Dr. Lottie Venegas Pain Assessment Pain Assessment Full Body Front + Back: 1. [facility] Combined Pain Scale: 4-Mild to Mod - Interrupts ADLs. Decrease in job performance Physical Exam Physical Exam: GENERAL: 83 year old white male. Speech and cognition is intact. Mood and affect is appropriate. Does not appear in acute distress. NEURO: CN II-XII grossly intact with no focal deficits noted. Gait not witnessed. SKIN: No lesions, erythema, or rashes noted.
[2018-09-25] MEDS: MoRPHine SULFATE 2 MG/ML CARP IV PRN (09:28)
[2018-09-25] MEDS: fentaNYL 25 MCG/HR TDSY TD SCH (10:13)
--- NOTE | 2018-09-25 15:37 | Hospitalist Progress Note ---
Date of Service September 25, 2018 Assessment & Plan (1) Prostate cancer: Mr. 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 Malignant neoplasm of prostate and/or bladder with suspected vertebral and lymph node metastasis CT ABD/PELVIS WITH CONTRAST: 1. 10 cm lobulated pelvic mass contiguous with the prostate and bladder base. There are adjacent pathologically enlarged pelvic lymph nodes. 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 Spinal MRI might be considered in follow-up to further evaluate the extent of epidural disease and canal compromise 3. Postsurgical changes are prior colectomy. No evidence of bowel obstruction. No evidence of free air 4. Abdominal aortic aneurysm status post aortoiliac stent grafting. 5. Nonobstructing 3 mm right renal calculus 6. Cholelithiasis BONE SCAN: IMPRESSION: 1. Findings highly suspicious for multifocal osseous metastatic disease. Several of these correlate with lytic lesions on recent CT. 2. Multifocal involvement of the spine is suspected, including L1. Notably, L1 previously demonstrated a compression deformity, which may be pathologic. Possible metastatic prostate CA, appreciate input from urology Radiation Oncology consulted appreciate input: Receiving palliative radiation treatment-session 3 out of 10 radiation therapy completed Pain Management consulted Appreciate input and help with pain control Fentanyl patch improved to 25 mcg, continue with Cymbalta Patient reports improvement of back pain after adjustment of pain meds Discharge to home when medically stable, pain well controlled, ambulating well Follow-up with urologist and radiation oncologist on discharge (2) Pelvic mass: Pt presented to ER with c/o thoracic and low back pain with radiation to bilateral buttocks that has increased over past several months. Reports decreased urinary stream and incomplete bladder emptying CT ABD/PELVIS WITH CONTRAST: 1. 10 cm lobulated pelvic mass contiguous with the prostate and bladder base. There are adjacent pathologically enlarged pelvic lymph nodes. 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 Spinal MRI might be considered in follow-up to further evaluate the extent of epidural disease and canal compromise 3. Postsurgical changes are prior colectomy. No evidence of bowel obstruction. No evidence of free air 4. Abdominal aortic aneurysm status post aortoiliac stent grafting. 5. Nonobstructing 3 mm right renal calculus 6. Cholelithiasis evaluated by Urology felt to be prostate CA with Mets Patient started on Casodex, continue finasteride Palliative radiation treatment for bone metastasis (3) First degree AV block: Noted to have episodes of intermittent bradycardia by telemetry yesterday Heart rate in low 90s Patient asymptomatic, blood pressure stable Beta-ruiz: Atenolol discontinued No other medications contributing to bradycardia, TSH normal Echocardiogram: no wall motion abnormality hyperdynamic LV with EF > 70% no significant valvular abnormality grade 1 Diastolic dysfunction given advanced metastatic CA with poor prognosis heroic measures /procedures ( pacemaker )-may not be appropriate so far pt remains in stable HR (4) HTN (hypertension): Beta-ruiz: Atenolol discontinued for first-degree AV block, episode of bradycardia (5) CAD (coronary artery disease): S/P stent RCA in 1999 Atenolol discontinued for bradycardia continue Simvastatin (6) AAA (abdominal aortic aneurysm): S/P repair in 2008 Status: DNR/DNI Overall very poor prognosis We will discussed with patient son power of city attorney: Regarding consultation for palliative care Disposition PT/OT evaluation in progress, follow-up recommendation lives with family at home Social service consulted for discharge planning Follow-up with PCP, urologist Dr. Liz, radiation oncologist Dr. Espinosa Subjective Patient appears to be comfortable, Lying in bed, reports his pain is 2 out of 10, just got pain tablet Fentanyl patch increased to 25 mcg today No confusion on increased somnolence noted Normal output from colostomy bag, no narcotic induced constipation No urinary retention, or lower abdominal pain Telemetry shows heart rate remains in low 90s No fever or chills, appetite fair Review of Systems Review of Systems: All systems reviewed & are unremarkable except as noted in HPI & below Constitutional: + fatigue; no fever and no chills Physical Exam Constitutional: WD/WN, vitals as above + ill appearing; no acute distress Eyes: + anicteric sclerae ENMT: external ear and nose normal, oropharynx normal Neck: trachea midline, no thyromegaly Respiratory: normal respiratory effort; no respiratory distress and no cough Cardiovascular: Rate/Rhythm: regular rate and regular rhythm Extremities: no edema Gastrointestinal (Abdomen): Percussion/Palpation: abdomen soft; abdomen nontender Colostomy bag present, Musculoskeletal: Lower lumbar pain, currently controlled with pain meds Neurologic: PERRL, EOMI, accommodation nl, no face palsy, no dysarthria Psychiatric: Orientation: alert and oriented x 3 Affect: + flat affect Results & Data Vital Signs (Past 12 Hours) Vital Signs Temp Pulse Pulse Pulse Resp BP BP 09/25/18 14:44 37.2 C 89 16 130/67 09/25/18 11:22 36.6 C 87 18 119/57 L 09/25/18 09:32 09/25/18 09:00 74 09/25/18 06:56 36.6 C 77 18 127/69 09/25/18 04:00 36.8 C 73 19 115/66 Pulse Ox 09/25/18 14:44 94 09/25/18 11:22 93 09/25/18 09:32 96 09/25/18 09:00 09/25/18 06:56 92 09/25/18 04:00 92
[2018-09-25] MEDS: BIMATOPROST 0.01% OP SOLN 2.5 ML BTL OPB SCH (20:41)
[2018-09-25] MEDS: DORZOLAMIDE/TIMOLOL 22.3/6.8MG/ML 10 ML BTL OP SCH (20:42)
[2018-09-26] MEDS: OXYCODONE HCL IR 5 MG TAB (IMMEDIATE RELEASE) PO PRN ×2 (06:45→23:36)
[2018-09-26] MEDS: GABAPENTIN 600 MG TAB PO SCH ×3 (08:19→20:18)
[2018-09-26] MEDS: HEPARIN SOD 5,000 UNIT/0.5 ML VIAL SQ SCH ×2 (08:20→20:17)
[2018-09-26] MEDS: TAMSULOSIN HCL 0.4 MG CAP PO SCH (08:21)
[2018-09-26] MEDS: DULOXETINE HCL 20 MG CAP PO SCH (08:21)
[2018-09-26] MEDS: FINASTERIDE 5 MG TAB PO SCH (08:21)
[2018-09-26] MEDS: CHECK FENTANYL PATCH PLACEMENT SCH ×3 (08:22→23:36)
[2018-09-26] MEDS: DORZOLAMIDE/TIMOLOL 22.3/6.8MG/ML 10 ML BTL OP SCH ×2 (08:25→20:15)
[2018-09-26] MEDS: MoRPHine SULFATE 2 MG/ML CARP IV PRN (10:44)
--- NOTE | 2018-09-26 16:17 | Palliative Care Progress Note ---
Date of Service September 26, 2018 Subjective Consult received. Spoke with patient and his son Rainer via phone. Family meeting tomorrow at noon to discuss goals of care.
--- NOTE | 2018-09-26 18:14 | Hospitalist Progress Note ---
Date of Service September 26, 2018 Assessment & Plan (1) Prostate cancer: Mr. 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 Malignant neoplasm of prostate and/or bladder with suspected vertebral and lymph node metastasis CT ABD/PELVIS WITH CONTRAST: 1. 10 cm lobulated pelvic mass contiguous with the prostate and bladder base. There are adjacent pathologically enlarged pelvic lymph nodes. 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 Spinal MRI might be considered in follow-up to further evaluate the extent of epidural disease and canal compromise 3. Postsurgical changes are prior colectomy. No evidence of bowel obstruction. No evidence of free air 4. Abdominal aortic aneurysm status post aortoiliac stent grafting. 5. Nonobstructing 3 mm right renal calculus 6. Cholelithiasis BONE SCAN: IMPRESSION: 1. Findings highly suspicious for multifocal osseous metastatic disease. Several of these correlate with lytic lesions on recent CT. 2. Multifocal involvement of the spine is suspected, including L1. Notably, L1 previously demonstrated a compression deformity, which may be pathologic. Possible metastatic prostate CA, appreciate input from urology Radiation Oncology consulted appreciate input: Receiving palliative radiation treatment-session 3 out of 10 radiation therapy completed Pain Management consulted Appreciate input and help with pain control Fentanyl patch improved to 25 mcg, continue with Cymbalta Patient reports improvement of back pain after adjustment of pain meds Pt and family leaning towards Hospice /palliative care palliative care consulted -appreciate input (2) Pelvic mass: Pt presented to ER with c/o thoracic and low back pain with radiation to bilateral buttocks that has increased over past several months. Reports decreased urinary stream and incomplete bladder emptying CT ABD/PELVIS WITH CONTRAST: 1. 10 cm lobulated pelvic mass contiguous with the prostate and bladder base. There are adjacent pathologically enlarged pelvic lymph nodes. 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 Spinal MRI might be considered in follow-up to further evaluate the extent of epidural disease and canal compromise 3. Postsurgical changes are prior colectomy. No evidence of bowel obstruction. No evidence of free air 4. Abdominal aortic aneurysm status post aortoiliac stent grafting. 5. Nonobstructing 3 mm right renal calculus 6. Cholelithiasis evaluated by Urology felt to be prostate CA with Mets Patient started on Casodex, continue finasteride Palliative radiation treatment for bone metastasis pt will not be able to tolerate Clements catheter if develops urinary retention - attempt to insert clements will lead severe bleeding pallaitive and hospice service consulted for comfort care and symptom control (3) First degree AV block: Noted to have episodes of intermittent bradycardia by telemetry yesterday Heart rate in low 90s Patient asymptomatic, blood pressure stable Beta-ruiz: Atenolol discontinued No other medications contributing to bradycardia, TSH normal Echocardiogram: no wall motion abnormality hyperdynamic LV with EF > 70% no significant valvular abnormality grade 1 Diastolic dysfunction given advanced metastatic CA with poor prognosis heroic measures /procedures ( pacemaker )-may not be appropriate care is being transitioned to hospice /pallitive care (4) HTN (hypertension): Beta-ruiz: Atenolol discontinued for first-degree AV block, episode of bradycardia (5) CAD (coronary artery disease): S/P stent RCA in 1999 Atenolol discontinued for bradycardia on hospice care will limit medication to allow meds for pain relief and symptom control for comfort meaure (6) AAA (abdominal aortic aneurysm): S/P repair in 2008 Status: DNR/DNI Overall very poor prognosis Hospice care is appropriate Disposition plan is to return home with Hospice Subjective pt feels comfortable /pain is tolerable with current regimen " as long as I don't move " wants to be pain free as much as possible spoke with ROSENDO present at bedside family focusing on having pt return home with hospice /goal directed to keep pt comfortable/give as much quality as possible in his terminal metastatic cancer stage Palliative care spoke with Mr Everett earlier plan for family meeting with CM /palliative care to asses pt and family needs to return home with hospice Physical Exam Constitutional: WD/WN, vitals as above + ill appearing; no acute distress Eyes: + anicteric sclerae ENMT: external ear and nose normal, oropharynx normal Neck: trachea midline, no thyromegaly Respiratory: normal respiratory effort; no respiratory distress and no cough Cardiovascular: Rate/Rhythm: regular rate and regular rhythm Extremities: no edema Gastrointestinal (Abdomen): Percussion/Palpation: abdomen soft; abdomen nontender Neurologic: PERRL, EOMI, accommodation nl, no face palsy, no dysarthria Psychiatric: Orientation: alert and oriented x 3 Affect: + flat affect Results & Data Vital Signs (Past 12 Hours) Vital Signs Temp Pulse Resp BP Pulse Ox 09/26/18 15:17 36.6 C 91 H 18 120/58 L 94 09/26/18 07:36 36.6 C 84 18 139/72 93
[2018-09-26] MEDS: BIMATOPROST 0.01% OP SOLN 2.5 ML BTL OPB SCH (20:15)
[2018-09-27] MEDS: GABAPENTIN 600 MG TAB PO SCH ×3 (08:42→21:15)
[2018-09-27] MEDS: FINASTERIDE 5 MG TAB PO SCH (08:43)
[2018-09-27] MEDS: HEPARIN SOD 5,000 UNIT/0.5 ML VIAL SQ SCH ×2 (08:43→21:16)
[2018-09-27] MEDS: DULOXETINE HCL 20 MG CAP PO SCH (08:43)
[2018-09-27] MEDS: TAMSULOSIN HCL 0.4 MG CAP PO SCH (08:43)
[2018-09-27] MEDS: DORZOLAMIDE/TIMOLOL 22.3/6.8MG/ML 10 ML BTL OP SCH ×2 (08:45→21:14)
[2018-09-27] MEDS: CHECK FENTANYL PATCH PLACEMENT SCH ×3 (08:46→23:29)
[2018-09-27] MEDS: MoRPHine SULFATE 2 MG/ML CARP IV PRN (09:30)
--- NOTE | 2018-09-27 10:04 | Palliative Care Progress Note ---
Date of Service September 27, 2018 Results & Data Vital Signs (Past 12 Hours) Vital Signs Temp Pulse Resp BP Pulse Ox 09/27/18 07:00 36.5 C 95 H 18 118/66 92 09/26/18 23:36 36.5 C 80 18 112/61 95 PG Care Time/CCT Total # of Minutes Spent Total Time Spent with Patient: Total time spent is greater than 50% in coordination of care (as documented) at patient's floor/unit and/or counseling patient:
--- NOTE | 2018-09-27 11:24 | Palliative Care Consultation ---
Date of Consultation September 27, 2018 Assessment & Plan (1) Goals of care, counseling/discussion: This is an 83 year old male who presented to the [facility] ED complaining of thoracic and lower back pain with radiation to bilateral buttocks. Additionally, the patient expressed having decreased urine stream and incomplete bladder emptying. Additional PMH includes HTN, dyslipidemia, CAD s/p stent RCA, AAA s/p repair, ulcerative colitis s/p RLQ colectomy, and BPH. Patient reports history of lower back pain for several years but increasingly moreso over the past few months with increased difficulty lying flat comfortably. He has been evaluated at [facility] and has received injections without relief. Abdominal CT was performed and results were consistent with aggressive metastatic prostate cancer. His PSA > 330. A PET scan was performed and a 10cc lobulated pelvic mass with multiple enlarged lymph nodes was discovered with additional metastasis to his bones; T10, T11 and sacral region. The patient has been evaluated by hematology/oncology and palliative radiation was started. He was evaluated by Pain management who started him on a low dose Fentanyl patch of 12mcg with Oxycodone IR 5mg Q6 PRN for breakthrough. Palliative Care was consulted to discuss goals of care. -I met with patient in room 450-1, no family at the bedside. The patient was pleasant and cooperative during exam/interview. -Patient is awake, alert, oriented and able to participate fully in conversation . -Patient states that his pain is more controlled today, rating 3-4. His Fentanyl patch was increased on 09/25 by Pain Management, now Fentanyl 25mcg TD Q3D with Oxy IR for breakthrough - they will continue to adjust as needed, appears to be a tolerated dose with good efficacy. Patient has utilized one dose of Morphine IV in the last 24 hours and No doses of Oxy IR. If discharge to home is consider ed, would consider increasing dose of Oxy IR to eliminate use of Morphine IV prior to discharge if pain worsens. -Patient reflected on his disease and stated "well, this is not quality of life, now is it?" He went on to say "I can't hardly see anymore, you put me in front of a TV and unless its one of those REALLY good TV's it is all blurry. 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 He stated that when he retired he moved to [place] so that he could fish every day. -He was due to go to radiation in a few moments, he stated he is fine continuing radiation, but just wishes it "would do something beneficial". -He expressed he was twice and lost both of his wives to cancer. -I returned to the room to meet with the patients son Rainer and daughter in lawSallie with whom the patient lives with. Lengthy conversation held and the three of them came to the agreement to stop palliative radiation and focus fully on hospice. We discussed home hospice vs facility and they would like to return home on hospice, agency to be determined with assistance from Case Management. -The patient son is also in the process of obtaining fully POA, but is requesting service excellence, to complete the process. I called and left a VM for them. -We did complete a POLST form indicating DNR/DNI, Comfort measures only, trial abx, no artificial nutrition/hydration. Patient confirmed he does NOT want to return to the hospital post discharge. -Patient would require medical equipment at home including a bed, bedside co mmode, bedside table, etc prior to discharge. -Confirmed and collaborated with Hospitalist regarding above information. -PPS: 40% (2) Metastatic disease: (3) Prostate cancer: (4) Ulcerative colitis: Supervising Physician Co-Signing Physician Notes Chart reviewed, patient seen and examined. Patient's [id number] at bedside. PE: Patient awake and alert, no acute distress-lying flat in bed HEENT: EOMI, hearing within normal limits Respirations: Unlabored CV: Regular rate, no edema Neuro: Alert and oriented x4 Agree with above note, assessment and plan as per JUAN LUIS Osorio-plan is to go home with hospice care. Patient lives with his son and [id number]. Patient has received 5 out of 10 XRT to the spine for pain-patient wishes to forego further radiation-does feel it did help with his pain. Will continue to follow and assist with medical decision making as needed. History of Present Illness Reason for Consultation: Goals of Care Requesting Physician: Dr. Thornton Attending Physician: Apoorva Thornton MD History of Present Illness This is an 83 year old male who presented to the [facility] ED complaining of thoracic and lower back pain with radiation to bilateral buttocks. Additionally, the patient expressed having decreased urine stream and incomplete bladder emptying. Additional PMH includes HTN, dyslipidemia, CAD s/p stent RCA, AAA s/p repair, ulcerative colitis s/p RLQ colectomy, and BPH. Patient reports history of lower back pain for several years but increasingly moreso over the past few months with increased difficulty lying flat comfortably. He has been evaluated at [facility] and has received injections without relief. Abdominal CT was performed and results were consistent with aggressive metastatic prostate cancer. His PSA > 330. A PET scan was performed and a 10cc lobulated pelvic mass with multiple enlarged lymph nodes was discovered with additional metastasis to his bones; T10, T11 and sacral region. The patient has been evaluated by hematology/oncology and palliative radiation was started. He was evaluated by Pain management who started him on a low dose Fentanyl patch of 12mcg with Oxycodone IR 5mg Q6 PRN for breakthrough. Palliative Care was consulted to discuss goals of care. Please see Assessment and Plan portion of this note for further details. Thank you kindly for involving palliative care with this unfortunate, yet pleasant patient. Allergies Allergy/AdvReac Type Severity Reaction Status Date / Time No Known Allergies Allergy Unverified 09/19/18 10:47 Home Medications Home Medications Medication Instructions Recorded Confirmed Type atenolol 25 mg PO HS 09/19/18 09/19/18 History bimatoprost [Lumigan] 1 drp OPB PM 09/19/18 09/19/18 History brimonidine-timolol [Combigan] 1 drp OPB BID 09/19/18 09/19/18 History fexofenadine [Silvia Allergy] 180 mg PO DAILY PRN 09/19/18 09/19/18 History finasteride 5 mg PO DAILY 09/19/18 09/19/18 History gabapentin 600 mg PO TID 09/19/18 09/19/18 History hydrocodone-acetaminophen 1 tab PO Q6H PRN 09/19/18 09/19/18 History ibuprofen 400 mg PO QID PRN 09/19/18 09/19/18 History netarsudil [Rhopressa] 1 drp OPB QAM 09/19/18 09/19/18 History simvastatin 80 mg PO HS 09/19/18 09/19/18 History tamsulosin 0.4 mg PO DAILY 09/19/18 09/19/18 History Patient History Medical History Ulcerative colitis (Chronic) AAA (abdominal aortic aneurysm) (Chronic) S/P repair 05/13/2008 - [facility] BPH (benign prostatic hyperplasia) (Chronic) CAD (coronary artery disease) (Chronic) Dyslipidemia (Chronic) HTN (hypertension) (Chronic) Surgical History Hx of cataract surgery (Chronic) Hx of tonsillectomy (Chronic) History of colostomy (Chronic) History of cardiac catheterization (Chronic) S/P stent RCA in 1999 Family History Other Diabetes Hypertension Social History Communication Ability: Effective Beliefs That Will Affect Care: None Current Living Situation: Family Feels Safe at Home: Yes Safety Concerns: Feels Safe At This Time Smoking Status: Former smoker Smoking End Date: Quit 1989, smoked 1.5ppd x 30 years ; Hx Alcohol Use: No Hx Substance Use: No Review of Systems Review of Systems: All systems reviewed & are unremarkable except as noted in HPI & below Patient reports pain with ambulating and any movement, mostly in his thoracic area of his back, but not seems to be radiating into his bilateral hips. Pt denies any other significant symptoms. Physical Exam Constitutional: WD/WN, vitals as above + thin, + frail appearing and cooperative Eyes: PERRL, conjunctivae normal, anicteric sclerae ENMT: external ear and nose normal, oropharynx normal Neck: trachea midline, no thyromegaly Respiratory: normal respiratory effort, lungs clear to auscultation Cardiovascular: RRR, no murmur, no edema Gastrointestinal (Abdomen): Inspection/Auscultation: normal bowel sounds Percussion/Palpation: abdomen soft; no guarding RLQ ileostomy Skin: no rashes, warm and dry Psychiatric: A+Ox3, euthymic affect Lymphatic: no cervical or axillary lymphadenopathy Results & Data Vital Signs (Past 12 Hours) Vital Signs Temp Pulse Resp BP Pulse Ox 09/27/18 07:00 36.5 C 95 H 18 118/66 92 09/26/18 23:36 36.5 C 80 18 112/61 95 PG Care Time/CCT Total # of Minutes Spent Total Time Spent with Patient: Total time spent is greater than 50% in coordination of care (as documented) at patient's floor/unit and/or counseling patient: 100 Time Spent Midlevel Total time spent 100 minutes with > 50% of that time spent assessing the patient, discussing goals of care with the family and completing a POLST form.
[2018-09-27 15:23] VITALS: TEMP 98.1
[2018-09-27] MEDS: OXYCODONE HCL IR 5 MG TAB (IMMEDIATE RELEASE) PO PRN (17:36)
[2018-09-27 19:09] VITALS: O2SAT 94
[2018-09-27] MEDS ORDERED: LORazepam 1 MG TAB SL PRN (20:19)
--- NOTE | 2018-09-27 20:29 | Hospitalist Progress Note ---
Date of Service September 27, 2018 Assessment & Plan (1) Prostate cancer: Mr. 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 Malignant neoplasm of prostate and/or bladder with suspected vertebral and lymph node metastasis CT ABD/PELVIS WITH CONTRAST: 1. 10 cm lobulated pelvic mass contiguous with the prostate and bladder base. There are adjacent pathologically enlarged pelvic lymph nodes. 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 Spinal MRI might be considered in follow-up to further evaluate the extent of epidural disease and canal compromise 3. Postsurgical changes are prior colectomy. No evidence of bowel obstruction. No evidence of free air 4. Abdominal aortic aneurysm status post aortoiliac stent grafting. 5. Nonobstructing 3 mm right renal calculus 6. Cholelithiasis BONE SCAN: IMPRESSION: 1. Findings highly suspicious for multifocal osseous metastatic disease. Several of these correlate with lytic lesions on recent CT. 2. Multifocal involvement of the spine is suspected, including L1. Notably, L1 previously demonstrated a compression deformity, which may be pathologic. Possible metastatic prostate CA, appreciate input from urology Radiation Oncology consulted appreciate input: Receiving palliative radiation treatment-session 3 out of 10 radiation therapy completed Pain Management consulted Appreciate input and help with pain control Fentanyl patch improved to 25 mcg, continue with Cymbalta Patient reports improvement of back pain after adjustment of pain meds palliative care consulted -appreciate input family and pt wants to return home with hospice (2) Pelvic mass: Pt presented to ER with c/o thoracic and low back pain with radiation to bilateral buttocks that has increased over past several months. Reports decreased urinary stream and incomplete bladder emptying CT ABD/PELVIS WITH CONTRAST: 1. 10 cm lobulated pelvic mass contiguous with the prostate and bladder base. There are adjacent pathologically enlarged pelvic lymph nodes. 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 Spinal MRI might be considered in follow-up to further evaluate the extent of epidural disease and canal compromise 3. Postsurgical changes are prior colectomy. No evidence of bowel obstruction. No evidence of free air 4. Abdominal aortic aneurysm status post aortoiliac stent grafting. 5. Nonobstructing 3 mm right renal calculus 6. Cholelithiasis evaluated by Urology felt to be prostate CA with Mets Patient started on Casodex, continue finasteride Palliative radiation treatment for bone metastasis pt will not be able to tolerate Clements catheter if develops urinary retention - attempt to insert clements will lead severe bleeding pallaitive and hospice service consulted for comfort care and symptom control plan is to return home with hospcie (3) First degree AV block: Noted to have episodes of intermittent bradycardia by telemetry yesterday Heart rate in low 90s Patient asymptomatic, blood pressure stable Beta-ruiz: Atenolol discontinued No other medications contributing to bradycardia, TSH normal Echocardiogram: no wall motion abnormality hyperdynamic LV with EF > 70% no significant valvular abnormality grade 1 Diastolic dysfunction given advanced metastatic CA with poor prognosis heroic measures /procedures ( pacemaker )-may not be appropriate care is being transitioned to hospice /pallitive care (4) HTN (hypertension): Beta-ruiz: Atenolol discontinued for first-degree AV block, episode of bradycardia (5) CAD (coronary artery disease): S/P stent RCA in 1999 Atenolol discontinued for bradycardia on hospice care will limit medication to allow meds for pain relief and symptom control for comfort meaure (6) AAA (abdominal aortic aneurysm): S/P repair in 2008 Status: DNR/DNI Overall very poor prognosis Hospice care is appropriate Disposition plan is to return home with Hospice Subjective pt says pain is well controlled now plan is to return home with hospice Physical Exam Constitutional: WD/WN, vitals as above + ill appearing; no acute distress Eyes: + anicteric sclerae ENMT: external ear and nose normal, oropharynx normal Neck: trachea midline, no thyromegaly Respiratory: normal respiratory effort; no respiratory distress and no cough Cardiovascular: Rate/Rhythm: regular rate and regular rhythm Extremities: no edema Gastrointestinal (Abdomen): Percussion/Palpation: abdomen soft; abdomen nontender Neurologic: PERRL, EOMI, accommodation nl, no face palsy, no dysarthria Psychiatric: Orientation: alert and oriented x 3 Affect: + flat affect Results & Data Vital Signs (Past 12 Hours) Vital Signs Temp Pulse Pulse Resp BP BP Pulse Ox 09/27/18 19:09 36.7 C 96 H 18 123/56 L 94 09/27/18 15:22 36.7 C 84 20 114/57 L 93 09/27/18 11:22 36.6 C 77 18 128/70 95
[2018-09-27] MEDS: BIMATOPROST 0.01% OP SOLN 2.5 ML BTL OPB SCH (21:14)
[2018-09-27] MEDS: MoRPHine SULFATE 10 MG/0.5 ML UDP PO PRN (22:28)
[2018-09-28] MEDS: MoRPHine SULFATE 10 MG/0.5 ML UDP PO PRN ×5 (02:06→23:10)
[2018-09-28] MEDS: CHECK FENTANYL PATCH PLACEMENT SCH ×3 (08:15→23:10)
[2018-09-28] MEDS: DORZOLAMIDE/TIMOLOL 22.3/6.8MG/ML 10 ML BTL OP SCH ×2 (08:16→20:49)
[2018-09-28] MEDS: TAMSULOSIN HCL 0.4 MG CAP PO SCH (08:43)
[2018-09-28] MEDS: DULOXETINE HCL 20 MG CAP PO SCH (08:43)
[2018-09-28] MEDS: GABAPENTIN 600 MG TAB PO SCH ×3 (08:43→20:46)
[2018-09-28] MEDS: HEPARIN SOD 5,000 UNIT/0.5 ML VIAL SQ SCH ×2 (08:43→20:46)
[2018-09-28] MEDS: FINASTERIDE 5 MG TAB PO SCH (08:43)
[2018-09-28] MEDS: fentaNYL 25 MCG/HR TDSY TD SCH (10:30)
[2018-09-28] MEDS: BIMATOPROST 0.01% OP SOLN 2.5 ML BTL OPB SCH (20:49)
[2018-09-29] MEDS: MoRPHine SULFATE 10 MG/0.5 ML UDP PO PRN ×2 (06:13→21:32)
[2018-09-29] MEDS: CHECK FENTANYL PATCH PLACEMENT SCH ×2 (07:58→16:21)
[2018-09-29] MEDS: TAMSULOSIN HCL 0.4 MG CAP PO SCH (07:59)
[2018-09-29] MEDS: FINASTERIDE 5 MG TAB PO SCH (07:59)
[2018-09-29] MEDS: GABAPENTIN 600 MG TAB PO SCH ×3 (07:59→21:33)
[2018-09-29] MEDS: DULOXETINE HCL 20 MG CAP PO SCH (07:59)
[2018-09-29] MEDS: DORZOLAMIDE/TIMOLOL 22.3/6.8MG/ML 10 ML BTL OP SCH ×2 (08:00→21:34)
[2018-09-29] MEDS: HEPARIN SOD 5,000 UNIT/0.5 ML VIAL SQ SCH ×2 (08:00→21:34)
--- NOTE | 2018-09-29 11:44 | Hospitalist Progress Note ---
Date of Service September 28, 2018 Assessment & Plan (1) Prostate cancer: Mr. 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 Malignant neoplasm of prostate and/or bladder with suspected vertebral and lymph node metastasis CT ABD/PELVIS WITH CONTRAST: 1. 10 cm lobulated pelvic mass contiguous with the prostate and bladder base. There are adjacent pathologically enlarged pelvic lymph nodes. 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 Spinal MRI might be considered in follow-up to further evaluate the extent of epidural disease and canal compromise 3. Postsurgical changes are prior colectomy. No evidence of bowel obstruction. No evidence of free air 4. Abdominal aortic aneurysm status post aortoiliac stent grafting. 5. Nonobstructing 3 mm right renal calculus 6. Cholelithiasis BONE SCAN: IMPRESSION: 1. Findings highly suspicious for multifocal osseous metastatic disease. Several of these correlate with lytic lesions on recent CT. 2. Multifocal involvement of the spine is suspected, including L1. Notably, L1 previously demonstrated a compression deformity, which may be pathologic. Possible metastatic prostate CA, appreciate input from urology Radiation Oncology consulted appreciate input: Receiving palliative radiation treatment-session 3 out of 10 radiation therapy completed Pain Management consulted Appreciate input and help with pain control Fentanyl patch improved to 25 mcg, continue with Cymbalta Patient reports improvement of back pain after adjustment of pain meds palliative care consulted -appreciate input family and pt plans return home with hospice (2) Pelvic mass: Pt presented to ER with c/o thoracic and low back pain with radiation to bilateral buttocks that has increased over past several months. Reports decreased urinary stream and incomplete bladder emptying CT ABD/PELVIS WITH CONTRAST: 1. 10 cm lobulated pelvic mass contiguous with the prostate and bladder base. There are adjacent pathologically enlarged pelvic lymph nodes. 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 Spinal MRI might be considered in follow-up to further evaluate the extent of epidural disease and canal compromise 3. Postsurgical changes are prior colectomy. No evidence of bowel obstruction. No evidence of free air 4. Abdominal aortic aneurysm status post aortoiliac stent grafting. 5. Nonobstructing 3 mm right renal calculus 6. Cholelithiasis evaluated by Urology felt to be prostate CA with Mets Patient started on Casodex, continue finasteride Palliative radiation treatment for bone metastasis pt will not be able to tolerate Clements catheter if develops urinary retention - attempt to insert clements will lead severe bleeding pallaitive and hospice service consulted for comfort care and symptom control plan is to return home with hospe (3) First degree AV block: Noted to have episodes of intermittent bradycardia by telemetry yesterday Heart rate in low 90s Patient asymptomatic, blood pressure stable Beta-ruiz: Atenolol discontinued No other medications contributing to bradycardia, TSH normal Echocardiogram: no wall motion abnormality hyperdynamic LV with EF > 70% no significant valvular abnormality grade 1 Diastolic dysfunction given advanced metastatic CA with poor prognosis heroic measures /procedures ( pacemaker )-may not be appropriate care is being transitioned to hospice /pallitive care (4) HTN (hypertension): Beta-ruiz: Atenolol discontinued for first-degree AV block, episode of bradycardia (5) CAD (coronary artery disease): S/P stent RCA in 1999 Atenolol discontinued for bradycardia on hospice care will limit medication to allow meds for pain relief and symptom control for comfort meaure (6) AAA (abdominal aortic aneurysm): S/P repair in 2008 Status: DNR/DNI Overall very poor prognosis Hospice care is appropriate Disposition plan is to return home with Hospice Subjective Late entry: Patient was seen on 09/28/2018 at approximate 7:30 PM Patient appeared to be comfortable, lying flat in bed, Mentions position change makes his low back pain worse, At present on fentanyl patch, and Roxanol as needed,-patient feels his pain is well controlled with current regimen Physical Exam Constitutional: WD/WN, vitals as above + ill appearing; no acute distress Eyes: + anicteric sclerae ENMT: external ear and nose normal, oropharynx normal Neck: trachea midline, no thyromegaly Respiratory: normal respiratory effort; no respiratory distress and no cough Cardiovascular: Rate/Rhythm: regular rate and regular rhythm Extremities: no edema Gastrointestinal (Abdomen): Percussion/Palpation: abdomen soft; abdomen nontender Neurologic: PERRL, EOMI, accommodation nl, no face palsy, no dysarthria Psychiatric: Orientation: alert and oriented x 3 Affect: + flat affect
--- NOTE | 2018-09-29 13:20 | Hospitalist Progress Note ---
Date of Service September 29, 2018 Assessment & Plan (1) Prostate cancer: End-stage metastatic prostate cancer-on hospice/palliative care Mr. 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 Malignant neoplasm of prostate and/or bladder with suspected vertebral and lymph node metastasis CT ABD/PELVIS WITH CONTRAST: 1. 10 cm lobulated pelvic mass contiguous with the prostate and bladder base. There are adjacent pathologically enlarged pelvic lymph nodes. 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 Spinal MRI might be considered in follow-up to further evaluate the extent of epidural disease and canal compromise 3. Postsurgical changes are prior colectomy. No evidence of bowel obstruction. No evidence of free air 4. Abdominal aortic aneurysm status post aortoiliac stent grafting. 5. Nonobstructing 3 mm right renal calculus 6. Cholelithiasis BONE SCAN: IMPRESSION: 1. Findings highly suspicious for multifocal osseous metastatic disease. Several of these correlate with lytic lesions on recent CT. 2. Multifocal involvement of the spine is suspected, including L1. Notably, L1 previously demonstrated a compression deformity, which may be pathologic. Possible metastatic prostate CA, appreciate input from urology Radiation Oncology consulted appreciate input: Receiving palliative radiation treatment-session 3 out of 10 radiation therapy completed Pain Management consulted Appreciate input and help with pain control Fentanyl patch increased to 25 mcg, continue with Cymbalta/Neurontin Getting Roxanol as needed for breakthrough pain Patient reports improvement of back pain after adjustment of pain meds palliative care consulted -appreciate input family and pt plans return home with hospice spoke with patient's ygobzlab-av-kfm [employer] cell phone number #[phone] Patient son and kdrjraoo-wr-jle already chose [facility](home nursing agency) for hospice Have appointment tomorrow to meet in person Patient will need multiple equipments, wheelchair, hospital bed, bedside commode, raised toilet seats, Equipment will be arranged after discussion with hospice agency Family wants to wait until all the equipments are delivered to her house, then transition care from hospital to home with hospice care Patient gets excruciating pain with change of posture, movement secondary to widespread bone metastases Transport with [facility] will be appropriate Family updated (2) Pelvic mass: Pt presented to ER with c/o thoracic and low back pain with radiation to bilateral buttocks that has increased over past several months. Reports decreased urinary stream and incomplete bladder emptying CT ABD/PELVIS WITH CONTRAST: 1. 10 cm lobulated pelvic mass contiguous with the prostate and bladder base. There are adjacent pathologically enlarged pelvic lymph nodes. 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 Spinal MRI might be considered in follow-up to further evaluate the extent of epidural disease and canal compromise 3. Postsurgical changes are prior colectomy. No evidence of bowel obstruction. No evidence of free air 4. Abdominal aortic aneurysm status post aortoiliac stent grafting. 5. Nonobstructing 3 mm right renal calculus 6. Cholelithiasis evaluated by Urology felt to be prostate CA with Mets Patient started on Casodex, continue finasteride Palliative radiation treatment for bone metastasis PT WILL NOT BE ABLE TO TOLERATE SALCIDO CATHETER IF DEVELOPS URINARY RETENTION- ATTEMPT TO INSERT SALCIDO WILL LEAD SEVERE BLEEDING pallaitive and hospice service consulted for comfort care and symptom control plan is to return home with hospcie Will update hospice agency regarding avoidance of Salcido catheter (3) First degree AV block: Noted to have episodes of intermittent bradycardia by telemetry yesterday Heart rate in low 90s Patient asymptomatic, blood pressure stable Beta-ruiz: Atenolol discontinued No other medications contributing to bradycardia, TSH normal Echocardiogram: no wall motion abnormality hyperdynamic LV with EF > 70% no significant valvular abnormality grade 1 Diastolic dysfunction given advanced metastatic CA with poor prognosis heroic measures /procedures ( pacemaker )-may not be appropriate care is being transitioned to hospice /pallitive care (4) HTN (hypertension): Beta-ruiz: Atenolol discontinued for first-degree AV block, episode of bradycardia (5) CAD (coronary artery disease): S/P stent RCA in 1999 Atenolol discontinued for bradycardia on hospice care will limit medication to allow meds for pain relief and symptom control for comfort measure (6) AAA (abdominal aortic aneurysm): S/P repair in 2008 Status: DNR/DNI Overall very poor prognosis Hospice care is appropriate Disposition plan is to return home with Hospice Contacted: Patient's yjzlonoe-ip-vnq phone number #[phone]-updated regarding patient's status Subjective Patient appeared to be comfortable, lying flat in bed, Mentions position change makes his low back pain worse, Continue with fentanyl patch 25 mcg/Roxanol as needed, on gabapentin and Cymbalta for neuropathic pain Patient reports pain 2 out of 10, able to have approximate 4-hour sleep last night Will to get intermittent naps throughout the day Comfortable with current pain management Waiting for arrangements to be completed to return home with hospice care Physical Exam Constitutional: WD/WN, vitals as above + ill appearing; no acute distress Eyes: + anicteric sclerae ENMT: external ear and nose normal, oropharynx normal Neck: trachea midline, no thyromegaly Respiratory: normal respiratory effort; no respiratory distress and no cough Cardiovascular: Rate/Rhythm: regular rate and regular rhythm Extremities: no edema Gastrointestinal (Abdomen): Percussion/Palpation: abdomen soft; abdomen nontender Neurologic: PERRL, EOMI, accommodation nl, no face palsy, no dysarthria Psychiatric: Orientation: alert and oriented x 3 Affect: + flat affect
[2018-09-29] MEDS: BIMATOPROST 0.01% OP SOLN 2.5 ML BTL OPB SCH (21:34)
[2018-09-30] MEDS: MoRPHine SULFATE 10 MG/0.5 ML UDP PO PRN ×3 (04:56→19:18)
[2018-09-30] MEDS: GABAPENTIN 600 MG TAB PO SCH ×3 (07:38→20:23)
[2018-09-30] MEDS: DORZOLAMIDE/TIMOLOL 22.3/6.8MG/ML 10 ML BTL OP SCH ×2 (07:38→20:25)
[2018-09-30] MEDS: TAMSULOSIN HCL 0.4 MG CAP PO SCH (07:38)
[2018-09-30] MEDS: DULOXETINE HCL 20 MG CAP PO SCH (07:38)
[2018-09-30] MEDS: HEPARIN SOD 5,000 UNIT/0.5 ML VIAL SQ SCH ×2 (07:38→20:26)
[2018-09-30] MEDS: FINASTERIDE 5 MG TAB PO SCH (07:38)
[2018-09-30] MEDS: CHECK FENTANYL PATCH PLACEMENT SCH ×3 (07:38→16:20)
--- NOTE | 2018-09-30 19:52 | Hospitalist Progress Note ---
Date of Service September 30, 2018 Assessment & Plan (1) Prostate cancer: End-stage metastatic prostate cancer-on hospice/palliative care Mr. 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 Malignant neoplasm of prostate and/or bladder with suspected vertebral and lymph node metastasis CT ABD/PELVIS WITH CONTRAST: 1. 10 cm lobulated pelvic mass contiguous with the prostate and bladder base. There are adjacent pathologically enlarged pelvic lymph nodes. 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 Spinal MRI might be considered in follow-up to further evaluate the extent of epidural disease and canal compromise 3. Postsurgical changes are prior colectomy. No evidence of bowel obstruction. No evidence of free air 4. Abdominal aortic aneurysm status post aortoiliac stent grafting. 5. Nonobstructing 3 mm right renal calculus 6. Cholelithiasis BONE SCAN: IMPRESSION: 1. Findings highly suspicious for multifocal osseous metastatic disease. Several of these correlate with lytic lesions on recent CT. 2. Multifocal involvement of the spine is suspected, including L1. Notably, L1 previously demonstrated a compression deformity, which may be pathologic. Possible metastatic prostate CA, appreciate input from urology Radiation Oncology consulted appreciate input: Receiving palliative radiation treatment-session 3 out of 10 radiation therapy completed Pain Management consulted Appreciate input and help with pain control Fentanyl patch increased to 25 mcg, continue with Cymbalta/Neurontin Getting Roxanol as needed for breakthrough pain Patient reports improvement of back pain after adjustment of pain meds palliative care consulted -appreciate input family and pt plans return home with hospice spoke with patient's [id number] [employer] cell phone number #[phone] Patient son and [id number]-itv already chose [facility](home nursing agency) for hospice Patient will need multiple equipments, wheelchair, hospital bed, bedside commode, raised toilet seats, Equipment will be arranged after discussion with hospice agency Patient appears to gain better mobility, able to sit up, change position without any difficulty Family had discussion with [facility] Equipments will be delivered to patient's home tomorrow Plan to discharge patient home tomorrow with family members once everything is set up at home (2) Pelvic mass: Pt presented to ER with c/o thoracic and low back pain with radiation to bilateral buttocks that has increased over past several months. Reports decreased urinary stream and incomplete bladder emptying CT ABD/PELVIS WITH CONTRAST: 1. 10 cm lobulated pelvic mass contiguous with the prostate and bladder base. There are adjacent pathologically enlarged pelvic lymph nodes. 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 Spinal MRI might be considered in follow-up to further evaluate the extent of epidural disease and canal compromise 3. Postsurgical changes are prior colectomy. No evidence of bowel obstruction. No evidence of free air 4. Abdominal aortic aneurysm status post aortoiliac stent grafting. 5. Nonobstructing 3 mm right renal calculus 6. Cholelithiasis evaluated by Urology felt to be prostate CA with Mets Patient started on Casodex, continue finasteride Palliative radiation treatment for bone metastasis PT WILL NOT BE ABLE TO TOLERATE SALCIDO CATHETER IF DEVELOPS URINARY RETENTION- ATTEMPT TO INSERT SALCIDO WILL LEAD SEVERE BLEEDING pallaitive and hospice service consulted for comfort care and symptom control plan is to return home with hospcie possible tomorrow Will update hospice agency regarding avoidance of Salcido catheter (3) First degree AV block: Noted to have episodes of intermittent bradycardia by telemetry yesterday Heart rate in low 90s Patient asymptomatic, blood pressure stable Beta-ruiz: Atenolol discontinued No other medications contributing to bradycardia, TSH normal Echocardiogram: no wall motion abnormality hyperdynamic LV with EF > 70% no significant valvular abnormality grade 1 Diastolic dysfunction given advanced metastatic CA with poor prognosis heroic measures /procedures ( pacemaker )-may not be appropriate care is being transitioned to hospice /pallitive care Plan to return home with hospice tomorrow (4) HTN (hypertension): Beta-ruiz: Atenolol discontinued for first-degree AV block, episode of bradycardia (5) CAD (coronary artery disease): S/P stent RCA in 1999 Atenolol discontinued for bradycardia on hospice care will limit medication to allow meds for pain relief and symptom control for comfort measure (6) AAA (abdominal aortic aneurysm): S/P repair in 2008 Status: DNR/DNI Overall very poor prognosis Hospice care is appropriate Disposition plan is to return home with Hospice possible tomorrow Contacted: Patient's [id number]-cgb phone number #[phone]-updated regarding patient's status Subjective Patient is sitting up today on the edge of bed, able to eat meals without any assistance Complained of right ear pain earlier this morning, Symptom has resolved Patient mentions he uses eardrops chronically which has not been given since admission No fever chills no cough no shortness of breath Physical Exam Constitutional: WD/WN, vitals as above + ill appearing; no acute distress Eyes: + anicteric sclerae ENMT: external ear and nose normal, oropharynx normal Neck: trachea midline, no thyromegaly Respiratory: normal respiratory effort; no respiratory distress and no cough Cardiovascular: Rate/Rhythm: regular rate and regular rhythm Extremities: no edema Gastrointestinal (Abdomen): Percussion/Palpation: abdomen soft; abdomen nontender Neurologic: PERRL, EOMI, accommodation nl, no face palsy, no dysarthria Psychiatric: Orientation: alert and oriented x 3 Affect: + flat affect
[2018-09-30] MEDS ORDERED: CARBAMIDE PEROXIDE 6.5% 15 ML BTL OT PRN (19:53)
[2018-09-30] MEDS: BIMATOPROST 0.01% OP SOLN 2.5 ML BTL OPB SCH (20:25)
[2018-10-01] MEDS: CHECK FENTANYL PATCH PLACEMENT SCH ×3 (00:07→15:25)
[2018-10-01] MEDS: MoRPHine SULFATE 10 MG/0.5 ML UDP PO PRN ×3 (02:13→16:11)
[2018-10-01] MEDS: DORZOLAMIDE/TIMOLOL 22.3/6.8MG/ML 10 ML BTL OP SCH (07:20)
[2018-10-01] MEDS: HEPARIN SOD 5,000 UNIT/0.5 ML VIAL SQ SCH (07:20)
[2018-10-01] MEDS: TAMSULOSIN HCL 0.4 MG CAP PO SCH (07:21)
[2018-10-01] MEDS: DULOXETINE HCL 20 MG CAP PO SCH (07:21)
[2018-10-01] MEDS: GABAPENTIN 600 MG TAB PO SCH ×2 (07:21→13:30)
[2018-10-01] MEDS: FINASTERIDE 5 MG TAB PO SCH (07:21)
[2018-10-01] MEDS: fentaNYL 25 MCG/HR TDSY TD SCH (09:45)
[2018-10-01 13:54] VITALS: BP 128/70; PULSE 77
[2018-10-01] MEDS ORDERED: CIPRO 0.3%/DEXAMETHASONE 0.1% OTIC SUSP 7.5ML OT SCH (15:50)
--- NOTE | 2018-10-01 15:53 | Discharge Summary ---
Date of Service October 01, 2018 Admission HPI Per Admitting Provider Pt is 83 y/o M with PMH HTN, dyslipidemia, CAD s/p stent RCA, AAA s/p repair, ulcerative colitis s/p colectomy, BPH presented to ER with c/o increased back pain. Patient reports history of lower back pain for several years. Reports increased back pain for the past 8 months with pain to lower back with radiation to buttocks in past 3 months is also been having mid back pain. Patient states the past several months pain is increased and he is having difficulty lying supine in finding position of comfort. Has followed up with pain management at [facility] and injections were tried without relief. Pt followed with neurosurgery at [facility] on 09/17/18 and conservative treatment recommended. Pt reports tried hydrocodone which he reserved for severe pain and used with limited relief of pain, states has one dose remaining. On Gabapentin, states some relief, however pt reports drowsiness and states ran out yesterday. Patient denies any lower extremity weakness. Denies any falls. Patient reports is been using a walker. Patient reports noticed weight loss over the past couple months however is unsure the amount. Reports decreased appetite the past month. Denies night sweats. Pt reports progressive decreased urine stream and sensation of incomplete bladder emptying over past couple of months. Denies any increased stool out put in colostomy bag. Denies fever/chills, N/V, [place], dizziness, syncope, vision changes, neck pain, CP, SOB, orthopnea, palpitations, cough, sore throat, choking, otalgia, rhinorrhea, abdominal pain, extremity paresthesias, saddle paresthesias, extremity edema, rashes, urinary incont inence, hematuria. History MRI lumbar spine without contrast 04/01/2018: 1. Mild to moderate multilevel degenerative disc disease. 2. No definite limiting canal stenosis. 3. Varying degrees of foraminal narrowing as described not definitively limiting. 4. On the STIR images, there is a STIR hyperintensity appears to be associated with the right ilium. This is not well demonstrated on their series, appears T1 hypointense and is nonspecific, may be posttraumatic. Metastatic lesion not excluded. Follow-up with CT scan or MRI with contrast recommended. Hx CT ABD/PELVIS W/O CONTRAST on 05/01/18: Bones: No focal skeletal lesion identified. Bladder: unremarkable, Lymph nodes: unremarkable. Enlarged prostate gland. Vessels: Aorto bi-iliac graft stent noted, the stent bypasses a fusiform abdominal aneurysm near the bifurcation that measures up to approx 4.9cm in diameter. this is unchanged in size compared to aortic ultrasound 09/18/2017. Principal Diagnosis Metastatic prostate cancer, with widespread metastases to bone, intractable pain secondary to malignancy Discharged home with Hospice Discharge Exam Constitutional WD/WN, vitals as above + ill appearing; no acute distress Eyes + anicteric sclerae ENMT external ear and nose normal, oropharynx normal Neck trachea midline, no thyromegaly Respiratory normal respiratory effort; no respiratory distress and no cough Cardiovascular Rate/Rhythm: regular rate and regular rhythm Extremities: no edema Gastrointestinal (Abdomen) Percussion/Palpation: abdomen soft; abdomen nontender Neurologic PERRL, EOMI, accommodation nl, no face palsy, no dysarthria Psychiatric Orientation: alert and oriented x 3 Affect: + flat affect Discharge Data Allergies Allergy/AdvReac Type Severity Reaction Status Date / Time No Known Allergies Allergy Unverified 09/19/18 10:47 Consultations 09/19/18 13:12 ED Decision to Admit Stat 09/19/18 15:36 Consult Case Management - Discharge Planning Routine Consult Urology Routine 09/20/18 10:11 Consult Radiation Oncology Routine 09/22/18 18:34 Consult Pain Management Routine 09/25/18 18:48 Consult Palliative Care Routine Ordered Studies 09/19/18 11:01 CT abd pelvis IV con only Stat 09/20/18 CT guide rad therapy pelvis Routine Hospital Course (1) Prostate cancer: End-stage metastatic prostate cancer-on hospice/palliative care Mr. 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 Malignant neoplasm of prostate and/or bladder with suspected vertebral and lymph node metastasis CT ABD/PELVIS WITH CONTRAST: 1. 10 cm lobulated pelvic mass contiguous with the prostate and bladder base. There are adjacent pathologically enlarged pelvic lymph nodes. 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 Spinal MRI might be considered in follow-up to further evaluate the extent of epidural disease and canal compromise 3. Postsurgical changes are prior colectomy. No evidence of bowel obstruction. No evidence of free air 4. Abdominal aortic aneurysm status post aortoiliac stent grafting. 5. Nonobstructing 3 mm right renal calculus 6. Cholelithiasis BONE SCAN: IMPRESSION: 1. Findings highly suspicious for multifocal osseous metastatic disease. Several of these correlate with lytic lesions on recent CT. 2. Multifocal involvement of the spine is suspected, including L1. Notably, L1 previously demonstrated a compression deformity, which may be pathologic. Possible metastatic prostate CA, appreciate input from urology Radiation Oncology consulted appreciate input: Receiving palliative radiation treatment-session 3 out of 10 radiation therapy completed Pain Management consulted Appreciate input and help with pain control Fentanyl patch increased to 25 mcg, continue with Cymbalta/Neurontin Getting Roxanol as needed for breakthrough pain Patient reports improvement of back pain after adjustment of pain meds palliative care consulted -appreciate input family and pt plans return home with hospice spoke with patient's [id number] [employer] cell phone number #[phone] Patient son and [id number] already chose [facility](home nursing agency) for hospice Patient will need multiple equipments, wheelchair, hospital bed, bedside commode, raised toilet seats, Equipment arranged and delivered to pt's home P stable to be transferred back home /home with Hospice Plan to discharge patient home tomorrow with family members once everything is set up at home (2) Pelvic mass: Pt presented to ER with c/o thoracic and low back pain with radiation to bilateral buttocks that has increased over past several months. Reports decreased urinary stream and incomplete bladder emptying CT ABD/PELVIS WITH CONTRAST: 1. 10 cm lobulated pelvic mass contiguous with the prostate and bladder base. There are adjacent pathologically enlarged pelvic lymph nodes. 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 Spinal MRI might be considered in follow-up to further evaluate the extent of epidural disease and canal compromise 3. Postsurgical changes are prior colectomy. No evidence of bowel obstruction. No evidence of free air 4. Abdominal aortic aneurysm status post aortoiliac stent grafting. 5. Nonobstructing 3 mm right renal calculus 6. Cholelithiasis evaluated by Urology felt to be prostate CA with Mets Patient started on Casodex, continue finasteride Palliative radiation treatment for bone metastasis PT WILL NOT BE ABLE TO TOLERATE TRISTAN CATHETER IF DEVELOPS URINARY RETENTION- ATTEMPT TO INSERT TRISTAN WILL LEAD SEVERE BLEEDING pallaitive and hospice service consulted for comfort care and symptom control plan is to return home with hospcie today Will update hospice agency regarding avoidance of Tristan catheter (3) First degree AV block: Noted to have episodes of intermittent bradycardia by telemetry yesterday Heart rate in low 90s Patient asymptomatic, blood pressure stable Beta-ruiz: Atenolol discontinued No other medications contributing to bradycardia, TSH normal Echocardiogram: no wall motion abnormality hyperdynamic LV with EF > 70% no significant valvular abnormality grade 1 Diastolic dysfunction given advanced metastatic CA with poor prognosis heroic measures /procedures ( pacemaker )-may not be appropriate care is being transitioned to hospice /pallitive care Plan to return home with hospice today (4) HTN (hypertension): Beta-ruiz: Atenolol discontinued for first-degree AV block, episode of bradycardia (5) CAD (coronary artery disease): S/P stent RCA in 1999 Atenolol discontinued for bradycardia on hospice care will limit medication to allow meds for pain relief and symptom control for comfort measure (6) AAA (abdominal aortic aneurysm): S/P repair in 2008 Status: DNR/DNI Overall very poor prognosis Hospice care is appropriate Disposition pt is discharged home with Hospice today Total Time Total Time Spent Total Time Spent (In Minutes): 40 mins Total Time Includes: Examination of the Patient, Discharge Planning and Medication Reconciliation Discharge Plan Discharge Items Patient Disposition: Hospice - Home Reason For Visit: BACK PAIN, PELVIC MASS Discharge Diagnosis: Metastatic prostate cancer, with widespread metastases to bone, intractable pain secondary to malignancy Discharge Goals: Decrease discomfort Activity: As commented below Activity Comment: as tolerated Non-emergency contact: Primary Care Provider Call non-emergency contact if: you have any medication questions Follow-up/Referrals: Patrick Calero DO [Primary Care Provider] - Jozef Hall II, DO [Physician] - (PLEASE CALL UROLOGY OFFICE WITH ANY SYMPTOM OF NOT ABLE TO VOID , LOWER ABDOMINAL PAIN DUE TO URINARY RETENTION DO NOT ATTEMPT TO PLACE URINARY CATHETER WITHOUT DISCUSSION WITH UROLOGY ) Diet: Regular Addtl Provider Instructions: With hospice agency for further management/care for pain and discomfort Use Debrox ear wax drop over the counter as needed for ear wax build up PT WILL NOT BE ABLE TO TOLERATE TRISTAN CATHETER INSERTION IF DEVELOPS URINARY RETENTION -ATTEMPT TO INSERT TRISTAN WILL LEAD SEVERE BLEEDING PLEASE CONTACT UROLOGY OFFICE : [facility] FOR ACUTE RETENTION OF URINARY BLADDER /UNABLE TO URINATE -LEADING TO LOWER ABDOMINAL PAIN Prescriptions: New gabapentin 600 mg Tablet 600 mg PO TID 30 Days Qty: 90 RF: 0 duloxetine 20 mg Capsule,Delayed Release(Dr/Ec) 20 mg PO QAM 30 Days Qty: 30 RF: 0 morphine concentrate 100 mg/5 mL (20 mg/mL) Solution 0.5 ml PO Q2H PRN (Reason: pain) Qty: 30 RF: 0 lorazepam 1 mg Tablet 1 mg sublingual Q4 PRN (Reason: anxiety) Qty: 60 RF: 0 fentanyl 25 mcg/hr Patch 72 Hour 25 mcg transdermal Q3D@0930 Qty: 10 RF: 0 Ciprodex 0.3-0.1 % drops,suspension 4 drops OT BID 7 Days Qty: 1 RF: 0 Continued tamsulosin 0.4 mg Capsule 0.4 mg PO DAILY RF: 0 Combigan 0.2-0.5 % Drops 1 drp OPB BID RF: 0 Lumigan 0.01 % Drops 1 drp OPB PM RF: 0 Rhopressa 0.02 % Drops 1 drp OPB QAM RF: 0 finasteride 5 mg Tablet 5 mg PO DAILY RF: 0 Discontinued atenolol 25 mg Tablet 25 mg PO HS RF: 0 fexofenadine [Silvia Allergy] 180 mg Tablet 180 mg PO DAILY PRN (Reason: Allergy Symptoms) RF: 0 ibuprofen 200 mg Tablet 400 mg PO QID PRN (Reason: Pain) RF: 0 gabapentin 600 mg Tablet 600 mg PO TID RF: 0 hydrocodone-acetaminophen 5-325 mg Tablet 1 tab PO Q6H PRN (Reason: Pain) RF: 0 simvastatin 80 mg Tablet 80 mg PO HS RF: 0 Stand-Alone Forms: [facility] Discharge Orders: Discharge Order (Routine); Ordered 10/01/18 Ordered By: Apoorva Thornton Admission Data Admit Date/Time: 09/19/18 14:14 Attending Provider: Apoorva Thornton Admit Provider: Jermaine Bernal Primary Care Provider: Patrick Calero Other Providers: Jermaine Bernal ; Jozef Hall II ; Halima Chandler ; Cinthya Espinosa ; Viral Sarkarker,Tam ; Altagracia Henriquez Service: Medical Other Interventions: Discharge Summary Assessment (RN) Last Done: 10/01/18 13:52 DC Date/Time DO NOT enter until pt leaves facility: 10/01/18 16:35
[2018-10-01] MEDS ORDERED: CARBAMIDE PEROXIDE 6.5% 15 ML BTL OT ONE (16:15)
--- NOTE | 2018-10-17 08:50 | Radiation Onc End of Treatment ---
Date of Service October 17, 2018 HPI History Of Present Illness 09/19/2018. Patient presents to emergency room with complaints of thoracic and low back pain radiating to bilateral buttocks that is been increasing over several months. Patient denies any urinary symptoms. Patient admitted to hospital for further work-up and evaluation. 09/19/2018. CT of abdomen/pelvis. IMPRESSION: 1. 10 cm lobulated pelvic mass contiguous with the prostate and bladder base. There are adjacent pathologically enlarged pelvic lymph nodes. 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 Spinal MRI might be considered in follow-up to further evaluate the extent of epidural disease and canal compromise 3. Postsurgical changes are prior colectomy. No evidence of bowel obstruction. No evidence of free air 4. Abdominal aortic aneurysm status post aortoiliac stent grafting. 5. Nonobstructing 3 mm right renal calculus 6. Cholelithiasis. 09/20/2018. PSA. 330.0. 09/20/2018. Urology consultation by Dr. Nicholas Wolfe. Dr. Wolfe has diagnosed the patient with metastatic prostate cancer. Dr. Wolfe has recommended Firmagon with Casodex for systemic therapy. Dr. Wolfe is also recommended consideration of palliative external beam radiation therapy to the pelvis for pain control. Currently, the patient complains of significant lower back pain. He does state that pain medications are helping to improve his pain currently. He denies any significant urinary complaints. 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 No If not, explain: The prescription was for 10 fractions. Treatment was stopped early at the patient's request. Is patients chart complete and accurate? Yes If not, explain: Notes/Comments: Systemic Therapy Chemotherapy: No Additional Notes Additional Notes: Patient was seen as an inpatient. Radiation therapy was initiated for palliation of pain. After 5 fractions the patient declined further treatment. He was steadily becoming more debilitated. He was receiving morphine to help relieve the pain. He had been started on Lupron and Casodex by urology. With the decision to stop treatment he will continue follow-up with urology and the primary care physician. He had made a decision while hospitalized to transition into hospice/palliative care. He or family member may call our office if they have any questions or concerns in the future if they feel it is related to the radiation therapy. Pain Management Patient had complaint of back pain. On admission this was at a level 7. At discharge he was at a level 5. He did receive 5 of the planned 10 fractions of therapy. He had morphine available as an inpatient. Pain management will continue through hospice/palliative care.
== END 2018-10-01 16:35 | disposition hospice, home (50) | DRG 723 ==
LOC: ED 10:25 → SUATTDRO 14:14 → 4W 14:14 → 2W 09-20 12:24 → 4W 09-26 02:45
DX: I44.0 Atrioventricular block, first degree; E78.5 Hyperlipidemia, unspecified; Z87.891 Personal history of nicotine dependence; C79.49 Secondary malignant neoplasm of other parts of nervous system; R33.9 Retention of urine, unspecified; C79.51 Secondary malignant neoplasm of bone; I25.10 Atherosclerotic heart disease of native coronary artery without angina pectoris; C79.89 Secondary malignant neoplasm of other specified sites; N40.1 Benign prostatic hyperplasia with lower urinary tract symptoms; M54.9 Dorsalgia, unspecified; Z66 Do not resuscitate; Z51.5 Encounter for palliative care; Z93.2 Ileostomy status; K51.90 Ulcerative colitis, unspecified, without complications; C61 Malignant neoplasm of prostate; I10 Essential (primary) hypertension; Z95.5 Presence of coronary angioplasty implant and graft